=== PATIENT | female | born 1980 | race Caucasian/White ===

== ENCOUNTER → 2016-08-21 | Outpatient (CLI) | payer BC, MEDICAID ==
[~2016-08-21] MED LIST: /AUGM875TA OR; /WARF5TA OR; /WARF5TA PO; ACET500C PO; ACET65TA PO; CALCTAB68 PO; CIPR500T4 PO; CLEO300C PO; COLA100C2 OR; COLA50CA3 PO; DRIS1CAP PO; ENOX40SY SC; FERR325T OR; FLON0.05; IMMODIUM PO; ISOVUE-370 76% 100ML VIAL (Q9967) As Ordered ONE; LEVO112T3 OR; LEVO125T PO; LEVO150T OR; LEVOXYL PO; MACR50CA OR; META0.52 PO; NASAL SPRAY; NYST100024 TOP; PEPCID PO; PERC5TAB8 OR; PERC7.5T8 PO; SALI0.653; TYLE500T53 OR; VICO5TAB OR; VITA500T OR; VITAMIN D PO; WARF1TAB OR; WARF5TAB66 PO; WARF7.5T17 PO
--- NOTE | 2016-08-21 18:21 | REP ---
CT study of the abdomen without and with IV contrast: Without oral contrast: History: Abdominal pain. Comparison study: 06/04/2016. CT contrast dose: 100 mL of Isovue 370 is administered intravenously. Findings: Digital admissions officer radiograph is noncontributory. The lung bases show some chronically increased markings in the left lower lobe. Interstitial compartments unchanged from comparison study. No pleural effusion is seen. The liver and the spleen are normal in size homogeneous in texture. No gallbladder abnormality is seen. Pancreas is unremarkable. No adrenal lesion is seen. 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 Prominent venous collaterals are seen in the anterior abdominal wall as well as an enlarged left gonadal vein draining into the left renal vein which reconstitutes the inferior vena cava above the kidneys and in the liver. The azygos and lorene azygos vein are somewhat prominent as well as collaterals. This is all unchanged. Normal caliber aorta is seen. There is intrarenal hydronephrosis affecting the right kidney without ureteral dilation. Question mild ureteropelvic junction obstruction. This is essentially unchanged from the 06/04/2016 prior study. No renal calculus or mass is mass is seen. No uterine or urinary bladder abnormality is observed. There is a left lower quadrant colostomy. Left sigmoid colon resection with a rectal mucous fistula seen. There is a ventral hernia transmitting unobstructed loops of small intestine to the right of midline in the periumbilical region. A second ventral hernia transmits another loop of unobstructed small bowel in the suprapubic region. There is extensive fibrosis along a suprapubic midline incision again noted unchanged. No evidence of intraabdominal mass or abscess. No free fluid is noted. No uterine or ovarian abnormality is seen. Impression: 1. Status post left colonic resection with rectal oversewing and left lower quadrant colostomy. 2. Ventral hernias times two in the lower abdomen without evidence of obstruction unchanged. 3. Extensive postoperative fibrosis in the lower suprapubic anterior abdominal wall. 4. 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 5. Question mild UPJ obstruction right kidney with hydronephrosis unchanged from the prior study of 06/04/2016. 6. No acute intraabdominal abnormality seen. Signed by John Velazquez MD 08/22/2016 12:24 P
== END ==
LOC: M RAD 15:22
PROVIDERS: ATTEND Internal Medicine Gastroenterology
DX: Z93.3 Colostomy status (principal); K43.9 Ventral hernia without obstruction or gangrene; R93.5 Abnormal findings on diagnostic imaging of other abdominal regions, including retroperitoneum
CPT/HCPCS: 74178; Q9967

== ENCOUNTER → 2016-12-06 | Outpatient (REF) | payer BC, MEDICAID ==
[~2016-12-06] MED LIST changes: -ISOVUE-370 76% 100ML VIAL (Q9967) As Ordered ONE
[2016-12-06 14:41] LABS: FREE T4 1.28 NG/DL (0.76-1.46)
== END ==
LOC: M SFHCPLAZ 11:23
PROVIDERS: ATTEND Nurse Practitioner Family
DX: E55.9 Vitamin D deficiency, unspecified (principal); E03.9 Hypothyroidism, unspecified

== ENCOUNTER → 2017-11-08 | Outpatient (REF) | payer BC, MEDICAID ==
[2017-11-08 17:53] LABS: INR 1.58; PROTHROMBIN TIME 19.3 SECONDS (12.4-14.5)
[2017-11-08 17:59] LABS: ALBUMIN 3.3 GM/DL (3.2-5.2); ALBUMIN/GLOBULIN RATIO 0.65 (1.00-1.93); ALKALINE PHOSPHATASE 94 U/L (45-117); ALT/SGPT 25 U/L (12-78); ANION GAP 9 MEQ/L (8-16); AST/SGOT 17 U/L (7-37); BILIRUBIN,TOTAL 0.4 MG/DL (0.2-1.0); BLOOD UREA NITROGEN 26 MG/DL (7-18); CALCIUM LEVEL 8.7 MG/DL (8.5-10.1); CARBON DIOXIDE LEVEL 26 MEQ/L (21-32); CHLORIDE LEVEL 107 MEQ/L (98-107); CREATININE FOR GFR 1.15 MG/DL (0.55-1.30); GLOMERULAR FILTRATION RATE 56.8 (>60); GLUCOSE, FASTING 69 MG/DL (70-100); SODIUM LEVEL 142 MEQ/L (136-145); TOTAL PROTEIN 8.4 GM/DL (6.4-8.2)
[2017-11-08 18:14] LABS: TOTAL 25(OH) VITAMIN D 51.9 NG/ML (30.0-100.0)
== END ==
LOC: M SFHCPLAZ 12:49
DX: Z51.81 Encounter for therapeutic drug level monitoring (principal); Z79.899 Other long term (current) drug therapy; R10.13 Epigastric pain; E03.9 Hypothyroidism, unspecified; E55.9 Vitamin D deficiency, unspecified
CPT/HCPCS: 84443

== ENCOUNTER → 2018-01-17 | Outpatient (REF) | payer BC, MEDICAID ==
[2018-01-17 12:18] LABS: FREE T4 1.21 NG/DL (0.76-1.46)
== END ==
LOC: M SFHCPLAZ 09:07
DX: E03.9 Hypothyroidism, unspecified (principal)
CPT/HCPCS: 84443

== ENCOUNTER → 2018-05-21 | Outpatient (REF) | payer BC, MEDICAID ==
[2018-05-21 15:41] LABS: HEMATOCRIT 41.1 % (36.0-47.0); HEMOGLOBIN 12.8 g/dl (12.0-15.5); MEAN CORPUSCULAR HEMOGLOBIN 29.2 pg (27.0-33.0); MEAN CORPUSCULAR HGB CONC 31.1 g/dl (32.0-36.5); MEAN CORPUSCULAR VOLUME 93.6 fl (80.0-96.0); PLATELET COUNT, AUTOMATED 242 10^3/uL (150-450); RED BLOOD COUNT 4.39 10^6/uL (4.00-5.40); RED CELL DISTRIBUTION WIDTH 17.2 % (11.5-14.5); WHITE BLOOD COUNT 6.4 10^3/uL (4.0-10.0)
[2018-05-21 15:50] LABS: INR 2.35; PROTHROMBIN TIME 26.2 SECONDS (12.1-14.4)
[2018-05-21 16:05] LABS: ALBUMIN 2.8 GM/DL (3.2-5.2); ALBUMIN/GLOBULIN RATIO 0.53 (1.00-1.93); ALKALINE PHOSPHATASE 77 U/L (45-117); ALT/SGPT 30 U/L (12-78); ANION GAP 7 MEQ/L (8-16); AST/SGOT 21 U/L (7-37); BILIRUBIN,TOTAL 0.5 MG/DL (0.2-1.0); BLOOD UREA NITROGEN 16 MG/DL (7-18); CALCIUM LEVEL 8.7 MG/DL (8.5-10.1); CARBON DIOXIDE LEVEL 25 MEQ/L (21-32); CHLORIDE LEVEL 105 MEQ/L (98-107); GLOMERULAR FILTRATION RATE 59.5 (>60); GLUCOSE, FASTING 69 MG/DL (70-100); POTASSIUM SERUM 4.2 MEQ/L (3.5-5.1); SODIUM LEVEL 137 MEQ/L (136-145); THYROID STIMULATING HORMONE 0.482 uIU/ML (0.358-3.740); TOTAL PROTEIN 8.1 GM/DL (6.4-8.2)
[2018-05-21 16:06] LABS: TOTAL 25(OH) VITAMIN D 53.7 NG/ML (30.0-100.0)
== END ==
LOC: M SFHCPLAZ 13:28
DX: N18.3 Chronic kidney disease, stage 3 (moderate) (principal); Z86.718 Personal history of other venous thrombosis and embolism; E03.9 Hypothyroidism, unspecified; E55.9 Vitamin D deficiency, unspecified
CPT/HCPCS: 84443

== ENCOUNTER → 2018-07-22 | Outpatient (REF) | payer BC, MEDICAID ==
[2018-07-22 20:59] LABS: INR 2.16; PROTHROMBIN TIME 24.5 SECONDS (12.1-14.4)
[2018-07-22 21:04] LABS: AMORPHOUS SEDIMENT SMALL (NEGATIVE); APPEARANCE, URINE HAZY (CLEAR); BACTERIA, URINE AUTO NEGATIVE (NEGATIVE); BILIRUBIN, URINE AUTO NEGATIVE (NEGATIVE); BLOOD, URINE BLOOD 1+ (NEGATIVE); COLOR, URINE YELLOW (YELLOW); GLUCOSE, URINE (UA) AUTO NEGATIVE (NEGATIVE); KETONE, URINE AUTO NEGATIVE (NEGATIVE); LEUKOCYTE ESTERASE, URINE AUTO 3+ (NEGATIVE); MUCUS, URINE SMALL (NEGATIVE); NITRITE, URINE AUTO NEGATIVE (NEGATIVE); PROTEIN, URINE AUTO NEGATIVE (NEGATIVE); RBC, URINE AUTO 3 /HPF (0-3); SPECIFIC GRAVITY URINE AUTO 1.019 (1.002-1.035); SQUAMOUS EPITHELIAL CELL UR AU 5 /HPF (0-6); UROBILINOGEN, URINE AUTO 0.2 mg/dL (0.0-2.0); WBC, URINE AUTO 1 /HPF (0-3)
== END ==
LOC: M SFHCPLAZ 15:20
PROVIDERS: ATTEND Nurse Practitioner Family
DX: Z51.81 Encounter for therapeutic drug level monitoring (principal); N18.3 Chronic kidney disease, stage 3 (moderate); R39.89 Other symptoms and signs involving the genitourinary system

== ENCOUNTER → 2018-11-18 | Outpatient (REF) | payer BC, MEDICAID ==
[~2018-11-18] MED LIST changes: -/WARF5TA OR; -/WARF5TA PO; +COUM1TAB17 OR; +COUM1TAB17 PO; -ENOX40SY SC; +LOVE1INJ SC
[2018-11-18 15:50] LABS: FREE T4 1.36 NG/DL (0.76-1.46); THYROID STIMULATING HORMONE 1.2 uIU/ML (0.358-3.740); TOTAL 25(OH) VITAMIN D 45.2 NG/ML (30.0-100.0)
== END ==
LOC: M SFHCPLAZ 11:59
PROVIDERS: ATTEND Nurse Practitioner Family
DX: E03.9 Hypothyroidism, unspecified (principal); E55.9 Vitamin D deficiency, unspecified

== ENCOUNTER → 2018-11-25 | Outpatient (CLI) | payer BC, MEDICAID ==
--- NOTE | 2018-11-25 12:24 | REP ---
Chest two views HISTORY: Dyspnea Comparison: 11/13/2012 The lungs are clear. The heart is normal in size. The pulmonary vasculature is normal in appearance. The bony structure is intact. IMPRESSION: No acute disease. Electronically Signed by Alex Barnett MD 11/25/2018 12:16 P
== END ==
LOC: M RAD 11:50
PROVIDERS: ATTEND Nurse Practitioner Family
DX: R06.09 Other forms of dyspnea (principal)

== ENCOUNTER 2019-01-06 14:57 | Emergency (ER) | payer BC, MEDICAID ==
[~2019-01-06] VITALS: Ht 149.9 cm; Wt 159.1 kg
[2019-01-06] MEDS ORDERED: ONDANSETRON 4 MG ORAL DISINTEGRATING TAB (Q0162 PER 1MG) PO ONE (15:45)
[2019-01-06] MEDS ORDERED: MORPHINE 4 MG/ML 1ML VIAL/SYRINGE (J2270) SC ONE (15:45)
[2019-01-06] MEDS ORDERED: RANI15TA PO (15:56)
[2019-01-06] MEDS ORDERED: LEVO112T2 PO (15:56)
[2019-01-06] MEDS ORDERED: LEVO2TA PO ×2 (16:12→21:28)
[2019-01-06] MEDS ORDERED: WARF-18 PO (16:13)
--- NOTE | 2019-01-06 17:04 | REP ---
ABDOMINAL SERIES: Supine and erect views of the abdomen are performed. No free air is seen. Air and fecal material seen in the colon. There are mildly dilated small bowel loops in the left lower quadrant. This could represent a mild small bowel ileus versus early or partial small bowel obstruction. There are overlying metallic clips. An accompanying view of the chest demonstrates no acute infiltrate. Cardiac silhouette is mildly prominent. Mediastinal silhouette is unchanged. IMPRESSION: No free air. Mildly dilated small bowel loops in the left lower quadrant may represent a mild ileus versus early/partial small bowel obstruction. Electronically Signed by Wilfredo Simon MD 01/07/2019 10:09 A
[2019-01-06] MEDS: MORPHINE 4 MG/ML 1ML VIAL/SYRINGE (J2270) IV PRN ×2 (17:18→18:44)
[2019-01-06 17:22] LABS: BASO # 0.1 10^3/uL (0.0-0.2); BASO % 0.6 % (0.0-1.0); EOS % 0.3 % (0.0-3.0); HEMATOCRIT 42.2 % (36.0-47.0); HEMOGLOBIN 13.3 g/dl (12.0-15.5); LYMPH # 1.8 10^3/uL (1.5-4.5); LYMPH % 15.2 % (24.0-44.0); MEAN CORPUSCULAR HEMOGLOBIN 29.3 pg (27.0-33.0); MEAN CORPUSCULAR HGB CONC 31.5 g/dl (32.0-36.5); MONO # 0.9 10^3/uL (0.0-0.8); MONO % 7.6 % (0.0-5.0); NEUTROPHILS # 8.9 10^3/uL (1.8-7.7); NEUTROPHILS % 75.8 % (36.0-66.0); PLATELET COUNT, AUTOMATED 276 10^3/uL (150-450); RED BLOOD COUNT 4.54 10^6/uL (4.00-5.40); WHITE BLOOD COUNT 11.8 10^3/uL (4.0-10.0)
[2019-01-06] MEDS: GASTROGRAFIN SOLUTION 30ML PO SCH ×2 (17:26→17:57)
[2019-01-06 17:47] LABS: BLOOD UREA NITROGEN 9 MG/DL (7-18); CALCIUM LEVEL 8.6 MG/DL (8.5-10.1); CARBON DIOXIDE LEVEL 27 MEQ/L (21-32); CHLORIDE LEVEL 104 MEQ/L (98-107); GLOMERULAR FILTRATION RATE > 60.0 (>60); GLUCOSE, FASTING 87 MG/DL (70-100); POTASSIUM SERUM 4.5 MEQ/L (3.5-5.1); SODIUM LEVEL 139 MEQ/L (136-145)
[2019-01-06] MEDS ORDERED: ISOVUE-370 76% 100ML VIAL (Q9967) As Ordered ONE (19:01)
--- NOTE | 2019-01-06 20:18 | REPVR ---
EXAM: CT Abdomen and Pelvis With Contrast EXAM DATE/TIME: 01/06/2019 7:27 PM CLINICAL HISTORY: 38 years old, female; Abdominal pain; Additional info: R/O sbo TECHNIQUE: Imaging protocol: Axial computed tomography images of the abdomen and pelvis with intravenous contrast. Coronal and sagittal reformatted images were created and reviewed. Radiation optimization: All CT scans at this facility use at least one of these dose optimization techniques: automated exposure control; mA and/or kV adjustment per patient size (includes targeted exams where dose is matched to clinical indication); or iterative reconstruction. Contrast material: ISO 370; Contrast volume: 100 ml; Contrast route: IV; COMPARISON: CT ABD PELVIS WITH CONTRAST 06/04/2016 12:15 AM FINDINGS: Lungs: There is bibasilar compressive atelectasis. Pleural space: Small right pleural effusion. Liver: There is a diffuse decrease in hepatic parenchymal density, consistent with fatty infiltration. 1.9 cm soft tissue density in the gastrohepatic ligament likely represents a prominent caudate process of the caudate lobe of the liver and less likely a gastrohepatic ligament lymph node. Gallbladder and bile ducts: Normal. No calcified stones. No ductal dilation. Pancreas: Normal. No ductal dilation. Spleen: Normal. No splenomegaly. Adrenals: Normal. No mass. Kidneys and ureters: Multiple peripelvic cysts in the right kidney versus UPJ obstruction. Finding is stable in comparison to prior studies. Stomach and bowel: Numerous superficial varicosities in the anterior and anterolateral bowel wall secondary to a thrombosed distal inferior vena cava. Spigelian hernia left lower quadrant contains a dilated loop of edematous small bowel consistent with incarceration. There is no dilatation of the remaining small bowel loops to suggest obstruction. Appendix: No evidence of appendicitis. Intraperitoneal space: Inflammatory changes in the mesentery dorsal quadrant adjacent to the spigelian hernia. No free air. No significant fluid collection. Vasculature: Normal. No abdominal aortic aneurysm. Lymph nodes: Normal. No enlarged lymph nodes. Bladder: Unremarkable as visualized. Reproductive: Unremarkable as visualized. Bones/joints: This is moderate central spinal stenosis L4-5. Soft tissues: Large mid ventral anterior abdominal wall hernia contains loops of small bowel without evidence of incarceration or obstruction. Findings stable in comparison to the prior study. Prominent scar mid ventral anterior abdominal wall. Soft tissue edema and skin thickening anterior abdominal wall predominately over the large pannus in the lower abdomen. IMPRESSION: 1. Numerous superficial varicosities in the anterior and anterolateral bowel wall secondary to a thrombosed distal inferior vena cava. 2. There is a diffuse decrease in hepatic parenchymal density, consistent with fatty infiltration. 3. Large mid ventral anterior abdominal wall hernia contains loops of small bowel without evidence of incarceration or obstruction. Findings stable in comparison to the prior study. 4. Spigelian hernia left lower quadrant contains a dilated loop of edematous small bowel consistent with incarceration. There is no dilatation of the remaining small bowel loops to suggest obstruction. COMMENT: Consistent with the [employer]'s Incidental Findings Committee Report (J Am Renny Radiol 2010): Unless the patient's specific circumstances suggest otherwise, any liver lesion 0.5 cm or less, any cystic kidney lesion less than 1.0 cm, and/or any adrenal lesion 1.0 cm or less not otherwise characterized in this report as possessing suspicious or indeterminate imaging features is/are highly likely to be benign and do not require follow-up imaging or biopsy. Electronically signed by: Claus Maria On 01/06/2019 20:17:32 PM
[2019-01-06] MEDS ORDERED: RANI1TAB6 PO (21:28)
[2019-01-06] MEDS ORDERED: SYNT25TA PO (21:28)
[2019-01-06 21:32] LABS: ALBUMIN 2.6 GM/DL (3.2-5.2); ALT/SGPT 25 U/L (12-78); BILIRUBIN,DIRECT 0.2 MG/DL (0.0-0.2); BILIRUBIN,TOTAL 0.8 MG/DL (0.2-1.0); LIPASE 62 U/L (73-393)
[2019-01-06] MEDS ORDERED: WARF-23 PO ×2 (22:03)
[2019-01-06] MEDS ORDERED: NYST1POW9 TOP (22:03)
[2019-01-06] MEDS ORDERED: PAMPRIN PO (22:03)
[2019-01-06] MEDS ORDERED: SM N0.65 (22:03)
[2019-01-06] MEDS ORDERED: FLON1SPR (22:03)
[2019-01-06 22:34] LABS: INR 2.9; PROTHROMBIN TIME 30.2 SECONDS (11.8-14.0)
[2019-01-06 22:35] LABS: PARTIAL THROMBOPLASTIN TIME 60.9 SECONDS (25.0-38.4)
[2019-01-06 23:38] VITALS: BP 105/80
--- NOTE | 2019-01-08 12:56 | ED PDOC ---
Post-Departure Follow-Up dr painter and porfirio sotelo faxed formal report of ct abd/p for fu Long Antoine MD Jan 08, 2019 12:56
== END 2019-01-06 23:42 | disposition home or self-care (01) ==
LOC: M ED 14:57
DX: R10.9 Unspecified abdominal pain (principal); Q43.1 Hirschsprung's disease; Q90.9 Down syndrome, unspecified; I73.00 Raynaud's syndrome without gangrene; Z86.718 Personal history of other venous thrombosis and embolism; E07.9 Disorder of thyroid, unspecified; G47.33 Obstructive sleep apnea (adult) (pediatric); Z88.0 Allergy status to penicillin; Z93.3 Colostomy status; Z79.899 Other long term (current) drug therapy; Z79.01 Long term (current) use of anticoagulants
CPT/HCPCS: 74021; 74177; 80048; 80076; 83690; 85025; 85610; 85730; 96372; 96374; 96376; 99284; J2270; Q0162; Q9963; Q9967

== ENCOUNTER 2019-01-19 19:11 | Inpatient (IN) | payer BC, MEDICAID ==
[~2019-01-19] VITALS: Ht 149.9 cm; Wt 152.4 kg
[~2019-01-19 19:11] MED LIST changes: +FLON1SPR; +LEVO112T2 PO; +LEVO2TA PO; +NYST1POW9 TOP; +PAMPRIN PO; +RANI15TA PO; +RANI1TAB6 PO; +SM N0.65; +SYNT25TA PO; +WARF-18 PO; +WARF-23 PO
[2019-01-19] MEDS ORDERED: LORazepam 2 MG/ML VIAL (J2060) IV STA (21:01)
[2019-01-19] MEDS ORDERED: NS 500 ML IV ONE (21:15)
[2019-01-19] MEDS: GASTROGRAFIN SOLUTION 30ML PO SCH ×2 (21:24→21:25)
[2019-01-19 22:37] LABS: BASO # 0.1 10^3/uL (0.0-0.2); BASO % 0.5 % (0.0-1.0); EOS # 0.2 10^3/uL (0.0-0.50); HEMATOCRIT 37.5 % (36.0-47.0); HEMOGLOBIN 11.6 g/dl (12.0-15.5); LYMPH # 1.9 10^3/uL (1.5-4.5); LYMPH % 12.8 % (24.0-44.0); MEAN CORPUSCULAR HEMOGLOBIN 29.4 pg (27.0-33.0); MEAN CORPUSCULAR HGB CONC 30.9 g/dl (32.0-36.5); MEAN CORPUSCULAR VOLUME 95.2 fl (80.0-96.0); MONO # 0.8 10^3/uL (0.0-0.8); MONO % 5.4 % (0.0-5.0); NEUTROPHILS # 11.4 10^3/uL (1.8-7.7); NEUTROPHILS % 79.3 % (36.0-66.0); PLATELET COUNT, AUTOMATED 461 10^3/uL (150-450); RED BLOOD COUNT 3.94 10^6/uL (4.00-5.40); WHITE BLOOD COUNT 14.4 10^3/uL (4.0-10.0)
[2019-01-19 22:48] LABS: PROTHROMBIN TIME 86.9 SECONDS (11.8-14.0)
[2019-01-19 22:53] LABS: INR 10.85; PARTIAL THROMBOPLASTIN TIME 132.3 SECONDS (25.0-38.4)
[2019-01-19 23:10] LABS: ALBUMIN 1.9 GM/DL (3.2-5.2); BILIRUBIN,DIRECT 0.2 MG/DL (0.0-0.2); BILIRUBIN,TOTAL 0.4 MG/DL (0.2-1.0); CALCIUM LEVEL 8.1 MG/DL (8.5-10.1); CREATININE FOR GFR 1.2 MG/DL (0.55-1.30); GLOMERULAR FILTRATION RATE 53.8 (>60); POTASSIUM SERUM 3.1 MEQ/L (3.5-5.1); TOTAL PROTEIN 7.7 GM/DL (6.4-8.2)
[2019-01-19] MEDS ORDERED: PHYTONADIONE INJection 5 MG in NS 50 ML IV ONE (23:30)
--- NOTE | 2019-01-20 00:48 | REPVR ---
EXAM: CT Abdomen and Pelvis Without Contrast EXAM DATE/TIME: 01/19/2019 9:01 PM CLINICAL HISTORY: 38 years old, female; Abdominal pain; Generalized; Additional info: Pain/bleeding TECHNIQUE: Imaging protocol: Axial computed tomography images of the abdomen and pelvis without contrast. Coronal and sagittal reformatted images were created and reviewed. Radiation optimization: All CT scans at this facility use at least one of these dose optimization techniques: automated exposure control; mA and/or kV adjustment per patient size (includes targeted exams where dose is matched to clinical indication); or iterative reconstruction. COMPARISON: CT ABD/PEL W/IV ORAL CONTRAS 01/06/2019 7:14 PM FINDINGS: Lungs: Minimal left lower lobe infiltrate or atelectasis. Liver: The liver attenuation is 15 Hounsfield units and the spleen is 55 Hounsfield units. Gallbladder and bile ducts: Normal. No calcified stones. No ductal dilation. Pancreas: Normal. No ductal dilation. Spleen: Normal. No splenomegaly. Adrenals: Normal. No mass. Kidneys and ureters: Right perinephric induration with suggestion of hydronephrosis to the UPJ which is increased since the prior study and may reflect overlying infection. Stomach and bowel: Colostomy at the level of the descending colon with slight wall thickening of the distal colon preceding the colostomy site which may reflect colitis. There is incomplete visualization of a ventral wall hernia which contains nondilated contrast filled small bowel. Appendix: There are no changes of appendicitis. A normal appendix is not seen. Intraperitoneal space: Normal. No free air. No significant fluid collection. Vasculature: The IVC is essentially nonexistent. Lymph nodes: Normal. No enlarged lymph nodes. Bladder: Unremarkable as visualized. Reproductive: Unremarkable as visualized. Bones/joints: No acute fracture. No dislocation. Soft tissues: Large azygos vein at the caudal aspect of the chest with large venous varicosities or collaterals in the anterior abdominal wall. Prominent induration of the left lateral abdominal wall. Protrusion of ovoid soft tissue into the left lateral abdominal wall which is similar to the prior study it may reflect a segment of colon. There is some additional adjacent gas within indurated fat and may reflect a segment of bowel extending to the surface from a possible pouch. The appearance of this configuration is similar to the prior study. IMPRESSION: 1. Essentially nonexistent IVC. There are prominent venous collaterals/varicosities in the anterior abdominal wall and there are large paraspinous collaterals forming a large azygos vein. 2. Minimal left lower lobe infiltrate or atelectasis which is similar to 01/06/2019. 3. Right perinephric induration and hydronephrosis to the UPJ which is increased since the prior study and may reflect interval infection or pyonephrosis. 4. Fatty infiltration of the liver. 5. Wall thickening of the descending colon suggesting nonspecific segmental colitis which is increased since the prior study. 6. Defect in the left lateral abdominal wall which appears to reflect a colostomy. There is a large ovoid protrusion of soft tissue density through the defect which may reflect a bowel loop or pouch but has a similar configuration to the prior study. There is induration of the surrounding subcutaneous left lateral abdominal wall which is similar and may reflect cellulitis. Hemorrhagic infiltration is not excluded but the finding is similar to the prior study. 7. Incomplete visualization of a ventral wall hernia containing small bowel segments but may be similar to the prior study. Electronically signed by: Feliz Eller On 01/20/2019 00:47:18 AM
[2019-01-20] MEDS ORDERED: NS 1,000 ML IV ONE (01:00)
[2019-01-20] MEDS ORDERED: metroNIDAZOLE 500 MG in APPROPRIATE DILUENT 1 EA IV ONE (01:00)
[2019-01-20] MEDS ORDERED: CIPROFLOXACIN 400 MG in APPROPRIATE DILUENT 1 EA IV ONE (01:00)
[2019-01-20] MEDS ORDERED: VITA1CAP25 PO (01:24)
[2019-01-20] MEDS ORDERED: METAL LOCK LOOP XX ONE (02:26)
[2019-01-20] MEDS ORDERED: NEOSPORIN OINT 0.9 GM PKT (FLOOR STOCK) As Ordered ONE (02:28)
[2019-01-20] MEDS ORDERED: LORazepam 2 MG/ML VIAL (J2060) IV STA (03:02)
--- NOTE | 2019-01-20 03:57 | HPEPDOC ---
General Date of Admission 01/20/19 Date of Service: Jan 20, 2019 Chief Complaint The patient is a 38-year-old female admitted with a reason for visit of Abdominal Pain. Source: Family, RN/MD, Old records Severity: Severe History of Present Illness 38 year old female with Down's syndrome and cognitive impairment, MORBID OBESITY, DORIS NOT ON CPAP, h/o Hirschsprung disease s/p multiple abdominal surgeries total of 32 surgeries for different problems currently with a colostomy with failed reversal came to the ED with complaints of abdominal pain for 2 weeks and bleeding through the ostomy for 2 days. She has been having crampy abdominal pain all over the abdomen could not quantify the intensity for 2 weeks with loss of appetite and taking only liquids associated with constipation. SHe started having bloody stools 2 days ago which lasted for 1 day then stopped. Yesterday morning she had a almost normal bowel movement but then in the afternoon she again started bleeding profusely through her colostomy with clots and bright red blood so was brought to the ED. In the ED she was found to have an INR of 10.9 and was given vitamin k 1 dose. The bleeding stopped spontaneously. There was no significant change in her HH from baseline. While in the ED she started having diarrhea brownish in color profuse, watery stool sample was sent for C diff. CT abdomen pelvis showed possible colitis in the descending colon and a right hydronephrosis which seems to be worse than before. CT scan has multiple other finding all of which are chronic. There was no features of bowel obstruction. SHe is being admitted for Colitis and warfarin induced coagulopathy. He has not been on any antibiotics recently and her dosage of coumadin has not been changed. Home Medications Scheduled Cholecalciferol (Vitamin D3) (Vitamin D3) 50,000 Unit Capsule, 50,000 UNIT PO Q2WK, (Reported) EVERY OTHER SATURDAY Levothyroxine Sodium (Synthroid) 25 Mcg Tablet, 25 MCG PO DAILY, (Reported) TAKES WITH 200MCG FOR 225MCG TOTAL Levothyroxine Sodium (Synthroid) 200 Mcg Tablet, 200 MCG PO DAILY, (Reported) TAKES WITH 25 MCG FOR 225MCG TOTAL Ranitidine HCl (Ranitidine HCl) 150 Mg Tablet, 1 TAB PO QHS, (Reported) Warfarin Sodium (Warfarin Sodium) 5 Mg Tablet, 5 MG PO 6XWK, (Reported) EVERY NIGHT BUT SATURDAY NIGHT Warfarin Sodium (Warfarin Sodium) 5 Mg Tablet, 2.5 MG PO 1XWK, (Reported) SATURDAY NIGHTS Scheduled PRN Fluticasone Propionate (Flonase Allergy Relief) 9.9 Ml [place].susp, 1 SPRAY NA DAILY PRN for NASAL CONGESTION, (Reported) Nystatin (Nystatin Powder) 15 Gm Powder, 1 DOSE TOP TID PRN for REDNESS/IRRITATION, (Reported) USES UNDER BREASTS AND STOMACH FOLDS Sodium Chloride (Saline Nasal [place]) 44 Ml [place], 1 SPRAY NA QID PRN for NASAL DRYNESS, (Reported) [Pamprin] , 2 TAB PO Q6H PRN for PAIN, (Reported) Allergies Coded Allergies: amoxicillin (Verified Adverse Reaction, Mild, DIARRHEA, 01/06/19) clavulanic acid (Verified Adverse Reaction, Mild, DIARRHEA, 01/06/19) Past Medical History Medical History DOWN'S SYNDROME HIRSCHSPRUNG DISEASE RAYNAUD'S SYNDROME DVT - L LEG 1997, R LEG 03/2010, R ARM 03/2011 HYPOTHYROID 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 COBB 06/22 T & A PARTIAL HYSTERECTOMY WITH DRAINAGE OF TUBO-OVARIAN ABCESS- DR RAUSCH 08/02/10 VENTRAL/INCISIONAL HERNIA REPAIR WITH MESH/ LYSIS OF ADHESIONS TONSILLECTOMY AND ADENOIDECTOMY Family History FATHER: ALIVE, NO KNOWN MEDICAL PROBLEMS MOTHER: ALIVE, HTN, SLEEP APNEA PATERNAL GRAND FATHER: , ALCOHOL ABUSE PATERNAL GRAND MOTHER: ALIVE, HTN MATERNAL GRAND FATHER: ALIVE, HTN, CORONARY ARTERY DISEASE - CABG MATERNAL GRAND MOTHER: ALIVE, DIABETES 1 BROTHER(S) , 1 SISTER(S) - HEALTHY. Social History * Smoker: Denies Alcohol: Denies Drugs: denies A-FIB/CHADSVASC A-FIB History Current/History of A-Fib/PAF?: No Current PO Anticoag Therapy: Yes Review of Systems Constitutional: Denies: Chills, Fever, Night Sweats Eyes: Denies: Pain, Vision change ENT: Denies: Head Aches, Ear Pain, Dysphagia Skin: Denies: Rash, Lesions, Breakdown Pulmonary: Denies: Dyspnea, Cough Cardiovascular: Denies: Chest Pain, Palpitations, Orthopnea, Paroxysmal Noc. Dyspnea, Lt Headedness Gastrointestinal: Reports: Abdominal Pain, Diarrhea, Constipation, Melena, Hematochezia Genitourinary: Denies: Dysuria, Frequency, Incontinence, Retention Hematologic: Denies: Bruising, Bleeding Excessively Musculoskeletal: Denies: Neck Pain, Back Pain, Joint Pain, Muscle Pain, Spasms Physical Examination General Exam: Positive: Alert, Cooperative, Moderate Distress ENT Exam: Positive: Atraumatic, Pharynx Normal, Tongue Midline, Nares Patent, Ext Auditory Canal Nml; Negative: Mucous membr. moist/pink, Pharyngeal Edema, Pinna Normal Neck Exam: Positive: Supple; Negative: JVD, thyromegaly Chest Exam: Positive: Clear to auscultation, Normal air movement Heart Exam: Positive: Rate Normal, Regular Rhythm, Normal S1, Normal S2, Murmurs (systolic murmur present at the base); Negative: Rubs Telemetry: Positive: No significant arrhythmia Abdomen Exam: Positive: BS Hyperactive, Soft, Tenderness (in all the quadrant with hernias and colostomy but no guarding or rigidity), Other (morbidly obese) Extremity Exam: Negative: Clubbing, Cyanosis, Edema Skin Exam: Positive: Nl turgor and temperature; Negative: Breakdown, Lesion Vital Signs Vital Signs Date Time Temp Pulse Resp B/P (MAP) Pulse Ox O2 Delivery O2 Flow Rate FiO2 01/20/19 01:13 149/80 (103) 01/20/19 01:11 93 93 01/19/19 19:28 98.8 18 Room Air Laboratory Data Labs 24H Laboratory Tests 2 01/19/19 22:29: Lactic Acid Level 2.1*H 01/19/19 22:30: Immature Granulocyte % (Auto) 1.0, White Blood Count 14.4H, Red Blood Count 3.94L, Hemoglobin 11.6L, Hematocrit 37.5, Mean Corpuscular Volume 95.2, Mean Corpuscular Hemoglobin 29.4, Mean Corpuscular Hemoglobin Concent 30.9L, Red Cell Distribution Width 17.8H, Platelet Count 461H, Neutrophils (%) (Auto) 79.3H, Lymphocytes (%) (Auto) 12.8L, Monocytes (%) (Auto) 5.4H, Eosinophils (%) (Auto) 1.0, Basophils (%) (Auto) 0.5, Neutrophils # (Auto) 11.4H, Lymphocytes # (Auto) 1.9, Monocytes # (Auto) 0.8, Eosinophils # (Auto) 0.2, Basophils # (Auto) 0.1, Nucleated Red Blood Cells % (auto) 0.0, Prothrombin Time 86.9H, Prothromb Time International Ratio 10.85*H, Activated Partial Thromboplast Time 132.3*H, Anion Gap 8, Glomerular Filtration Rate 53.8L, Calcium Level 8.1L, Aspartate Amino Transf (AST/SGOT) 23, Alanine Aminotransferase (ALT/SGPT) 13, Alkaline Phosphatase 137H, Total Bilirubin 0.4, Direct Bilirubin 0.2, Total Protein 7.7, Albumin 1.9L, Albumin/Globulin Ratio 0.33L, Lipase 56L CBC/BMP Laboratory Tests 01/19/19 22:30 Red Blood Count 3.94 L, Mean Corpuscular Volume 95.2, Mean Corpuscular Hemoglobin 29.4, Mean Corpuscular Hemoglobin Concent 30.9 L, Red Cell Distribution Width 17.8 H, Neutrophils (%) (Auto) 79.3 H, Lymphocytes (%) (Auto) 12.8 L, Monocytes (%) (Auto) 5.4 H, Eosinophils (%) (Auto) 1.0, Basophils (%) (Auto) 0.5, Neutrophils # (Auto) 11.4 H, Lymphocytes # (Auto) 1.9, Monocytes # (Auto) 0.8, Eosinophils # (Auto) 0.2, Basophils # (Auto) 0.1 Assessment/Plan 38 year old female with Down's syndrome and cognitive impairment, h/o Hirschsprung disease s/p multiple abdominal surgeries for different problems currently with a colostomy with failed reversal came to the ED with complaints of abdominal pain for 2 weeks and bleeding through the ostomy for 2 days. She has been having crampy abdominal pain could not quantify the intensity for 2 weeks with loss of appetite and taking only liquids associated with constipation. SHe startee having bloody stools 2 days ago which lasted for 1 day then stopped. Yesterday morning she had a almost normal bowel movement but then in the afternoon she again started bleeding profusely through her colostomy with clots and bright red blood so was brought to the ED. in the ED she was found to have an INR of 10.9 and was given vitamin k 1 dose. The bleeding stopped spontaneously. There was no significant change in her HH from baseline. While in the ED she started having diarrhea brownish in color profuse, watery stool sample was sent for C diff. CT abdomen pelvis showed possible colitis in the descending colon and a right hydronephrosis which seems to be worse than before. CT scan has multiple other finding all of which are chronic. There was no features of bowel obstruction. She is being admitted for Colitis and warfarin induced coagulopathy. Colitis Wall thickening of the descending colon suggesting nonspecific segmental in CT abdomen will check for c diff will treat with cipro and flagyl for now ivf , clear liquids. in view of her multiple abdominal surgeries consider surgical consult. GIB due to warfarin induced coagulopathy with underlying colitis hh q 6 hours transfuse prn Warfarin induced coagulopathy given vit K will give FFP also recheck int he am. Morbid obesity with DORIS did not tolerate CPAP DORIS protocol DOWN'S SYNDROME with cognitive impairment lives at home with parents. Bilateral DVTs DVT - L LEG 1997, R LEG 03/2010, R ARM 03/2011 occluded IVC as seen in CT abdomen with collaterals. HYPOTHYROID continue synthroid Right Hydronephrosis chronic Right perinephric induration and hydronephrosis to the UPJ which is increased since the prior study and may reflect interval infection or pyonephrosis. renal functions normal Hernia through the colostomy There is a large ovoid protrusion of soft tissue density through the defect which may reflect a bowel loop or pouch but has a similar configuration to the prior study. There is induration of the surrounding subcutaneous left lateral abdominal wall which is similar and may reflect cellulitis. Hemorrhagic infiltration is not excluded but the finding is similar to the prior study. consider surgical evaluation. Ventral Hernia Incomplete visualization of a ventral wall hernia containing small bowel segments but may be similar to the prior study. Plan / VTE VTE Prophylaxis Ordered?: Yes ORLANDO WHITLEY MD Jan 20, 2019 03:03
[2019-01-20 04:34] LABS: BASO # 0.1 10^3/uL (0.0-0.2); BASO % 0.4 % (0.0-1.0); EOS # 0.1 10^3/uL (0.0-0.50); EOS % 0.9 % (0.0-3.0); HEMATOCRIT 34.2 % (36.0-47.0); HEMOGLOBIN 10.6 g/dl (12.0-15.5); LYMPH # 2.1 10^3/uL (1.5-4.5); LYMPH % 14.7 % (24.0-44.0); MEAN CORPUSCULAR HEMOGLOBIN 29.3 pg (27.0-33.0); MEAN CORPUSCULAR VOLUME 94.5 fl (80.0-96.0); MONO % 7.2 % (0.0-5.0); NEUTROPHILS # 10.8 10^3/uL (1.8-7.7); PLATELET COUNT, AUTOMATED 445 10^3/uL (150-450); RED BLOOD COUNT 3.62 10^6/uL (4.00-5.40); WHITE BLOOD COUNT 14.2 10^3/uL (4.0-10.0)
[2019-01-20 04:54] LABS: BLOOD UREA NITROGEN 14 MG/DL (7-18); CALCIUM LEVEL 7.5 MG/DL (8.5-10.1); CARBON DIOXIDE LEVEL 31 MEQ/L (21-32); CHLORIDE LEVEL 100 MEQ/L (98-107); CREATININE FOR GFR 1.09 MG/DL (0.55-1.30); GLOMERULAR FILTRATION RATE > 60.0 (>60); GLUCOSE, FASTING 102 MG/DL (70-100); POTASSIUM SERUM 3.5 MEQ/L (3.5-5.1); SODIUM LEVEL 137 MEQ/L (136-145)
[2019-01-20 06:00] VITALS: BP 123/68
[2019-01-20] MEDS ORDERED: FAMOTIDINE IV BAG 20 MG in APPROPRIATE DILUENT 1 EA IV SCH (06:00)
[2019-01-20] MEDS: FAMOTIDINE IV BAG 20 MG in APPROPRIATE DILUENT 1 EA IV SCH ×2 (06:00→18:12)
[2019-01-20] MEDS: LEVOTHYROXINE 100MCG TABLET (0.1MG) PO SCH (06:10)
[2019-01-20] MEDS: LEVOTHYROXINE 25MCG TABLET (0.025MG) PO SCH (06:22)
[2019-01-20] MEDS: MORPHINE 4 MG/ML 1ML VIAL/SYRINGE (J2270) IV PRN ×3 (06:24→23:44)
[2019-01-20 08:00] VITALS: BP 118/65
[2019-01-20 09:00] LABS: INR 2.02; PROTHROMBIN TIME 22.6 SECONDS (11.8-14.0)
[2019-01-20] MEDS: metroNIDAZOLE 500 MG in APPROPRIATE DILUENT 1 EA IV SCH ×2 (10:18→16:56)
[2019-01-20] MEDS: LORazepam 2 MG/ML VIAL (J2060) IV PRN ×2 (10:18→18:39)
[2019-01-20 10:22] LABS: HEMATOCRIT 32.2 % (36.0-47.0); HEMOGLOBIN 9.9 g/dl (12.0-15.5)
[2019-01-20 10:35] LABS: INR 1.98; PROTHROMBIN TIME 22.3 SECONDS (11.8-14.0)
--- NOTE | 2019-01-20 10:38 | IPN ---
DATE OF SERVICE: 01/20/2019 The patient still complains of left-sided abdominal pain, colostomy showed muslin-colored blood clots and bright red blood yesterday, status post 1 unit fresh frozen plasma (FFP) transfusion. Hemoglobin and hematocrit on admission was 11.6 and currently is 10.6. International normalized ratio (INR) is improved from 10.85 to 2.02 today. Partial thromboplastin time (PTT) is pending. Prothrombin time (PT) currently is 22.6. The patient is afebrile. No chills overnight. Mother says that she has foul-smelling urine. CT abdomen and pelvis 01/19/2019 showed IVC is nonexistent. Colitis and hydronephrosis of the UPJ which is increased since prior study. May reflect overlying infection. Colostomy with slight wall thickening of the distal colon preceding the colostomy site. Induration of the left lateral abdominal wall which may reflect hemorrhagic infiltration not excluded but similar to prior study. She denies any nausea or vomiting. Denies urgency, frequency. Complains of some right-sided flank pain. The patient's mother at the bedside says that she was dizzy and lightheaded at home but improved since she has been here today. No shortness of breath, chest pain or pressure or tightness, lightheadedness, or dizziness. Vital signs: Temperature 97.2, pulse 85, respiratory rate 20, blood pressure 118/65, 90% on room air. Generally, the patient is awake, alert, oriented to person and place. She is answering questions appropriately. HEENT: Poor dentition. Missing teeth and dental caries. Moist mucous membranes. No jugular venous distention (JVD). Lungs are diminished but clear to auscultation. No wheezing, rales, or rhonchi. Heart: S1, S2, sinus rhythm. Abdomen is soft. Left-sided colostomy is noted with some blood-tinged discharge and brown stool. Tender in the left lower quadrant. Multiple scarred, prior scars, surgical scars. Extremities: No clubbing, cyanosis, or any pitting edema. LABORATORY DATA: INR is 2.02. White count 14, hemoglobin 10, hematocrit 34, platelet count 445. Metabolic panel has been reviewed. ASSESSMENT AND PLAN: A 38-year-old with history of Down syndrome, Hirschsprung's, Reynard's, deep venous thrombosis (DVT) in the left leg and right arm on chronic warfarin, hypothyroidism, obstructive sleep apnea, floppy eyelid syndrome, phlebitis, colostomy with 32 abdominal surgeries, reversal was not successful, presents with abdominal pain and international normalized ratio (INR) of 10. Given vitamin K and FFP 1 unit with INR of 2.02, admitted for colitis and Coumadin-induced coagulopathy. CURRENT ISSUES: 1. Colitis. Currently on intravenous (IV) Cipro and flagyl, famotidine every 12 hours, and morphine as needed for pain. General surgery has been consulted for bleeding through the colostomy with gastrointestinal (GI) bleed, Dr. Aldrich. 2. Warfarin-induced coagulopathy. Warfarin has been held. Currently receives and has received vitamin K and FFP with INR of 2.02. General surgery to decide if further evaluation is required or inferior vena cava (IVC) filter to be done due to active GI bleed. 3. Acute blood loss anemia. Hemoglobin and hematocrit still remains stable. Currently asymptomatic. No transfusion requirement for red blood cell. 4. Hypocalcemia. Currently stable with no complaints of muscle weakness or spasms. 5. History of Hirschsprung disease. Prior multiple surgeries in the past. Nonreversible colostomy. 6. History of ventral incisional hernia repair with mesh/adhesions in the past and partial multiple abdominal surgeries, currently with abdominal pain but no signs of bowel obstruction. 7. History of partial hysterectomy with drainage of tubo-ovarian abscess by Dr. Garrett in 2010. No acute issues in the pelvis on the CT abdomen and pelvis. 8. Hypothyroidism. Check thyroid-stimulating hormone (TSH) and resume home dose of Synthroid. 9. Obstructive sleep apnea. Refuses continuous positive airway pressure (CPAP). 10. History of deep venous thrombosis of the lower extremity, right leg, left leg, right arm. Currently with acute blood loss anemia through GI bleed. The patient will need an IVC filter placed.
[2019-01-20 12:00] VITALS: BP 113/59
[2019-01-20] MEDS: CIPROFLOXACIN 400 MG in APPROPRIATE DILUENT 1 EA IV SCH (14:14)
[2019-01-20 15:37] LABS: HEMOGLOBIN 9.8 g/dl (12.0-15.5)
[2019-01-20 16:00] VITALS: BP 134/76
[2019-01-20 19:18] LABS: INR 1.69; PROTHROMBIN TIME 19.6 SECONDS (11.8-14.0)
[2019-01-20 20:00] VITALS: BP 95/48
[2019-01-20 22:34] LABS: HEMATOCRIT 31.8 % (36.0-47.0); HEMOGLOBIN 9.9 g/dl (12.0-15.5)
[2019-01-20 23:59] VITALS: BP 96/50
[2019-01-21] MEDS: metroNIDAZOLE 500 MG in APPROPRIATE DILUENT 1 EA IV SCH ×3 (01:53→16:17)
[2019-01-21] MEDS: CIPROFLOXACIN 400 MG in APPROPRIATE DILUENT 1 EA IV SCH ×2 (01:56→14:51)
[2019-01-21 04:00] VITALS: BP 96/52
[2019-01-21 04:36] LABS: AMORPHOUS SEDIMENT SMALL (NEGATIVE); APPEARANCE, URINE HAZY (CLEAR); BACTERIA, URINE AUTO 1+ (NEGATIVE); BILIRUBIN, URINE AUTO NEGATIVE (NEGATIVE); BLOOD, URINE BLOOD 3+ (NEGATIVE); COLOR, URINE YELLOW (YELLOW); GLUCOSE, URINE (UA) AUTO NEGATIVE (NEGATIVE); KETONE, URINE AUTO NEGATIVE (NEGATIVE); LEUKOCYTE ESTERASE, URINE AUTO 2+ (NEGATIVE); MUCUS, URINE SMALL (NEGATIVE); NITRITE, URINE AUTO NEGATIVE (NEGATIVE); PROTEIN, URINE AUTO NEGATIVE (NEGATIVE); RBC, URINE AUTO 13 /HPF (0-3); SPECIFIC GRAVITY URINE AUTO 1.008 (1.002-1.035); SQUAMOUS EPITHELIAL CELL UR AU 3 /HPF (0-6); UROBILINOGEN, URINE AUTO 0.2 mg/dL (0.0-2.0); WBC, URINE AUTO 14 /HPF (0-3)
[2019-01-21] MEDS: LEVOTHYROXINE 25MCG TABLET (0.025MG) PO SCH (05:52)
[2019-01-21] MEDS: LEVOTHYROXINE 100MCG TABLET (0.1MG) PO SCH (05:52)
[2019-01-21] MEDS: FAMOTIDINE IV BAG 20 MG in APPROPRIATE DILUENT 1 EA IV SCH ×2 (05:52→17:35)
[2019-01-21 06:08] LABS: BASO # 0.1 10^3/uL (0.0-0.2); BASO % 0.4 % (0.0-1.0); EOS # 0.2 10^3/uL (0.0-0.50); EOS % 1.6 % (0.0-3.0); HEMATOCRIT 30.4 % (36.0-47.0); HEMOGLOBIN 9.4 g/dl (12.0-15.5); LYMPH # 1.8 10^3/uL (1.5-4.5); LYMPH % 13.4 % (24.0-44.0); MEAN CORPUSCULAR HEMOGLOBIN 28.4 pg (27.0-33.0); MEAN CORPUSCULAR HGB CONC 30.9 g/dl (32.0-36.5); MEAN CORPUSCULAR VOLUME 91.8 fl (80.0-96.0); MONO % 7.2 % (0.0-5.0); NEUTROPHILS # 10.4 10^3/uL (1.8-7.7); NEUTROPHILS % 76.1 % (36.0-66.0); PLATELET COUNT, AUTOMATED 434 10^3/uL (150-450); RED BLOOD COUNT 3.31 10^6/uL (4.00-5.40); WHITE BLOOD COUNT 13.7 10^3/uL (4.0-10.0)
[2019-01-21 06:21] LABS: INR 1.74; PROTHROMBIN TIME 20.1 SECONDS (11.8-14.0)
[2019-01-21 06:33] LABS: CREATININE FOR GFR 1.13 MG/DL (0.55-1.30); GLOMERULAR FILTRATION RATE 57.7 (>60); POTASSIUM SERUM 2.9 MEQ/L (3.5-5.1)
[2019-01-21 08:00] VITALS: BP 108/59
[2019-01-21] MEDS: NYSTATIN 100,000 UNITS/GM TOPICAL PWD 15 GM TOP SCH ×2 (08:41→20:06)
[2019-01-21] MEDS ORDERED: POTASSIUM CHLORIDE 10 MEQ SR TABLET PO ONE ×2 (09:30→19:15)
[2019-01-21] MEDS: LORazepam 2 MG/ML VIAL (J2060) IV PRN ×2 (10:25→20:06)
[2019-01-21] MEDS: LACTULOSE 20 GM/30 ML SYRUP UD PO SCH (10:59)
[2019-01-21] MEDS: SENOKOT S TAB PO SCH ×2 (10:59→20:05)
--- NOTE | 2019-01-21 11:01 | IPNPDOC ---
Subjective General Date/Time Seen The patient was seen on 01/21/19 at 10:57. Subject Chief Complaint/History The patient is a 38-year-old female admitted with a reason for visit of Colitis, Gib, Warfarin Induced Coagulopathy. Current Medications Current Medications Current Medications Medications (Trade) Dose Ordered Sig/Lety Route PRN Reason Start Time Stop Time Status Last Admin Dose Admin Ciprofloxacin 400 mg/IV Miscellaneous Supplies 200 ml @ 200 mls/hr Q12H IV 01/20/19 14:00 01/21/19 01:56 Diatrizoate Meglum/ Diatrizoate Sod (Gastrografin) 10 ml Q30M PO 01/19/19 21:35 01/19/19 22:06 DC 01/19/19 21:25 Famotidine 20 mg/ IV Miscellaneous Supplies 50 ml @ 100 mls/hr Q12H IV 01/20/19 06:00 01/20/19 06:00 DC Famotidine 20 mg/ IV Miscellaneous Supplies 50 ml @ 100 mls/hr Q12H IV 01/20/19 06:00 01/21/19 05:52 Home Med (Med Rec Complete!) ASDIRECTED XX 01/20/19 01:30 01/20/19 01:30 DC Lactulose (Cephulac) 15 ml Q2D PO 01/21/19 09:00 Levothyroxine Sodium (Synthroid) 25 mcg DAILY@0600 PO 01/20/19 06:00 01/21/19 05:52 Levothyroxine Sodium (Synthroid) 200 mcg DAILY@0600 PO 01/20/19 06:00 01/21/19 05:52 Lorazepam (Ativan) 0.5 mg Q6HP PRN IV AGITATION 01/20/19 04:30 01/21/19 10:25 Lorazepam (Ativan) 0.5 mg STAT STAT IV 01/19/19 21:01 01/19/19 21:03 DC 01/19/19 21:24 Lorazepam (Ativan) 0.5 mg STAT STAT IV 01/20/19 03:02 01/20/19 03:03 DC 01/20/19 03:16 Metronidazole 500 mg/IV Miscellaneous Supplies 100 ml @ 100 mls/hr Q8H IV 01/20/19 09:00 01/21/19 10:26 Morphine Sulfate (Morphine Sulfate Inj) 2 mg Q4HP PRN IV PAIN 01/20/19 04:30 01/20/19 23:44 Nystatin (Mycostatin Powder, Nystop) abdominal folds BID TOP 01/21/19 09:00 01/21/19 08:41 Senna/Docusate Sodium (Senokot S) 1 tab BID PO 01/21/19 09:00 Warfarin Sodium (Coumadin) 5 mg DAILY@17 PO 01/21/19 17:00 Allergies Coded Allergies: amoxicillin (Verified Adverse Reaction, Mild, DIARRHEA, 01/06/19) clavulanic acid (Verified Adverse Reaction, Mild, DIARRHEA, 01/06/19) Objective Physical Examination Examination GENERAL APPEARANCE:[Patient seen, laying in bed, awake, alert, and oriented. Comfortable, in no acute distress]. SKIN: [Warm and moist]. HEENT: [Normocephalic, atraumatic. Butterfield palpebral conjunctiva, anicteric sclerae. Lips and mucosa appear moist]. NECK: [Supple, no thyromegaly. No obvious jugular venous distention]. LUNGS: [Clear to auscultation bilaterally. No wheezing appreciated]. HEART: [No chest wall abnormalities. Regular rate and rhythm with no murmurs appreciated]. ABDOMEN: Abdomen is , soft, . [No hepatosplenomegaly. No umbilical or groin herniations, nondistended. No noticeable rebound or guarding. No grimacing with palpation. No rebound tenderness. No masses appreciated]. EXTREMITIES: [Extremities have no deformities. No edema identified]. Vital Signs Vital Signs Date Time Temp Pulse Resp B/P (MAP) Pulse Ox O2 Delivery O2 Flow Rate FiO2 01/21/19 08:00 98.6 78 20 108/59 (75) 94 01/19/19 19:28 Room Air I&Os I&O- Last 24 Hours up to 6 AM 01/21/19 06:00 Intake Total 1880 ml Output Total 1150 ml Balance 730 ml Laboratory Data Labs 24H Laboratory Tests 2 01/20/19 15:23: Prothrombin Time 19.6H, Prothromb Time International Ratio 1.69 01/21/19 05:52: Prothrombin Time 20.1H, Prothromb Time International Ratio 1.74, Immature Granulocyte % (Auto) 1.3, White Blood Count 13.7H, Red Blood Count 3.31L, Hemoglobin 9.4L, Hematocrit 30.4L, Mean Corpuscular Volume 91.8, Mean Corpuscular Hemoglobin 28.4, Mean Corpuscular Hemoglobin Concent 30.9L, Red Cell Distribution Width 17.6H, Platelet Count 434, Neutrophils (%) (Auto) 76.1H, Lymphocytes (%) (Auto) 13.4L, Monocytes (%) (Auto) 7.2H, Eosinophils (%) (Auto) 1.6, Basophils (%) (Auto) 0.4, Neutrophils # (Auto) 10.4H, Lymphocytes # (Auto) 1.8, Monocytes # (Auto) 1.0H, Eosinophils # (Auto) 0.2, Basophils # (Auto) 0.1, Nucleated Red Blood Cells % (auto) 0.0, Anion Gap 8, Glomerular Filtration Rate 57.7L, Blood Urea Nitrogen 12, Creatinine 1.13, Sodium Level 136, Potassium Level 2.9*L, Chloride Level 99, Carbon Dioxide Level 29, Calcium Level 8.0L CBC/BMP Laboratory Tests 01/20/19 15:23 01/20/19 21:55 01/21/19 05:52 Red Blood Count 3.31 L, Mean Corpuscular Volume 91.8, Mean Corpuscular Hemoglobin 28.4, Mean Corpuscular Hemoglobin Concent 30.9 L, Red Cell Distribution Width 17.6 H, Neutrophils (%) (Auto) 76.1 H, Lymphocytes (%) (Auto) 13.4 L, Monocytes (%) (Auto) 7.2 H, Eosinophils (%) (Auto) 1.6, Basophils (%) (Auto) 0.4, Neutrophils # (Auto) 10.4 H, Lymphocytes # (Auto) 1.8, Monocytes # (Auto) 1.0 H, Eosinophils # (Auto) 0.2, Basophils # (Auto) 0.1, Calcium Level 8.0 L Microbiology Microbiology 01/20/19 Gastrointestinal Tract Panel (PCR) - Final, Complete Impression Lower GI bleed most likely from over anticoagulation. Has not recurred since the event. Morbid obesity Mental retardation Ventral and parastomal hernia recurrence In terms of the lower GI bleeding, discussed with her mom that I it is okay for me for her to resume her anticoagulation at this point and observe if she will rebleed. If she does rebleed the definitely will need to do a colonoscopy. If she does okay then we can plan for an elective colonoscopy later on. I also discussed with her that it seems like she has recurrence in her midline hernia as well as the parastomal hernia though she seems to be more symptomatic from her parastomal hernia. This may be contributing to the fecal retention though there is no signs of obstruction at this point. She does take lactulose as needed. I think putting her on some scheduled dose of a bowel regimen will help her. At this point we'll try lactulose every other day and see how this affects her bowel movements. The top case given her history of multiple repairs, reports of multiple adhesions and now recurrence of the hernia. Patient and mom wishes to avoid surgery if needed. She seems to be symptomatic from her her hernia but not at the point yet that she needs any emergent or urgent surgery. At some point this may be a possibility. She is okay to follow-up with me as an outpatient with regards to this and we can continue to conversation with regards to when and if and how the hernia may be repaired. Plan / VTE VTE Prophylaxis Ordered?: Yes FELIX JULIAN MD Jan 21, 2019 11:01
[2019-01-21] MEDS ORDERED: SLF 3 ML SYR IV PRN (12:15)
[2019-01-21 12:17] LABS: HEMATOCRIT 30.3 % (36.0-47.0); HEMOGLOBIN 9.4 g/dl (12.0-15.5)
[2019-01-21] MEDS: SLF 3 ML SYR IV SCH ×2 (14:36→22:00)
[2019-01-21 16:00] VITALS: BP 119/57
[2019-01-21] MEDS ORDERED: WARFARIN SOD 5 MG TAB PO ONE (17:00)
[2019-01-21] MEDS ORDERED: WARFARIN SOD 5 MG TAB PO SCH (17:00)
[2019-01-21 20:00] VITALS: BP 101/54
--- NOTE | 2019-01-22 00:01 | IPN ---
DATE: 01/21/2019 Patient denies any recurrent hematochezia via the colostomy tube. There have been no blood clots, no maroon or melanotic stools through the output. INR this morning is 1.74. Per surgery, Dr. Aldrich, patient's diet may be advanced as well as anticoagulation may be resumed. There are no plans to do esophagogastroduodenoscopy (EGD) for the patient to rule out or identify where the bleeding is. Her Coumadin had been held, but currently being resumed per surgical recommendations. Patient's family is adamant that no diagnostic intervention be done and did not want any EGD to further evaluate patient's bleeding. Overall plan is to continue with warfarin, and should the patient have recurrent bleeding, family may reconsider looking into site of bleed and go from there. She has a history of deep vein thrombosis (DVT) and risk for pulmonary embolism (PE). She still continually complains of abdominal pain but okay to resume an oral diet per surgery. Per the mother at the bedside, she also had had complaints of some hematuria at home, suprapubic pain, and flank pain. She is currently on Cipro for the colitis. Urinalysis (UA) was not impressive for a urinary tract infection (UTI). It shows 14 white blood cells (WBC), 1+ bacteria. Urine culture not sent. We will recheck a UA. Per the mother, patient transferred from bed to the bedside recliner. Denies any chest pain, pressure, tightness, palpitations, or lightheadedness at the moment. VITAL SIGNS: Temperature 98.6, pulse 78, respiratory rate 20, blood pressure 108/59, 94%, 100% on room air. GENERAL: Patient is awake, alert, oriented, supine in the bedside recline with her lower extremities elevated. She is anicteric. No jaundice. No use respiratory accessory muscles. Mother speaks for her. She is moaning at the bedside. No jugular venous distention (JVD), thyromegaly. LUNGS: Clear. Air entry is equal. HEART: S1, S2, sinus rhythm. No murmurs. ABDOMEN: Multiple abdominal scars that are well healed. Otherwise, colostomy bag is clear. Slightly tender around the medial aspect of it but no rebound or guarding. Positive bowel sounds all four quadrants. EXTREMITIES: Chronic edema. ASSESSMENT AND PLAN: This is a 38-year-old female, cared for by her mother with Down syndrome, Hirschsprung's, Raynaud's, deep vein thrombosis (DVT) in the left leg and right arm, on chronic warfarin, hypothyroidism, obstructive sleep apnea (DORIS), floppy eyelid syndrome, colostomy with 32 abdominal surgeries and reversal not being successful. Last operated on by general surgeon, Dr. Suero, at [facility], presented with abdominal discomfort. INR of 10. Was given vitamin K and fresh frozen plasma (FFP) 1 unit with repeat INR of 2.02 and currently on 1.64, admitted for colitis found on CT abdomen and Coumadin-induced coagulopathy. CURRENT ISSUES: 1. Acute colitis, on intravenous (IV) Cipro, Flagyl, famotidine every 12 hours, and morphine as needed. Surgery was consulted for gastrointestinal (GI) bleed through the colostomy tube with no plans for esophagogastroduodenoscopy (EGD) with recommendations to continue antibiotics, advance the diet. 2. Warfarin-induced coagulopathy. Warfarin has been held initially on admission. Had received one dose of vitamin K and FFP with a repeat INR of 2.02 and currently at 1.64. No further evaluation in terms of EGD have been decided by general surgery along with the patient's mother. At this time surgery is recommending resumption of the warfarin in light of prior history of deep vein thrombosis (DVT). Currently on 5 mg daily. Repeat INR. If repeat blood loss is noted via the colostomy tube, this will then be . 3. Acute gastrointestinal (GI) bleed via the colostomy. Hemoglobin and hematocrit remain stable. Patient has not needed red blood cell (RBC) transfusion. Thought to be related to elevated INR with 10 on admission, currently improved, then resume back on Coumadin. 4. Acute blood loss anemia secondary to GI bleed. Hemoglobin and hypertension remain stable. Not require blood transfusion. 5. History of Hirschsprung disease with prior multiple surgeries in the past and nonreversible colostomy. 6. History of ventral incisional hernia repair with mesh or adhesions in the past and multiple abdominal surgeries. Currently with abdominal pain, being treated for colitis but no signs of bowel obstruction. 7. Partial hysterectomy. Drainage of tubo-ovarian abscess in 2010. Per the mother, patient occasionally has hematuria. A UA was checked initially on admission. She is currently on Cipro. There appears to be no overt urinary tract infection noted on the UA. Will repeat the UA as the patient continues to complain of suprapubic pain as well as persistent occasional spotting. 8. Hypothyroidism, resumed on home dose of Synthroid.
[2019-01-22] MEDS: metroNIDAZOLE 500 MG in APPROPRIATE DILUENT 1 EA IV SCH ×2 (01:12→10:21)
[2019-01-22] MEDS: CIPROFLOXACIN 400 MG in APPROPRIATE DILUENT 1 EA IV SCH (02:36)
[2019-01-22 04:00] VITALS: BP 91/50
[2019-01-22] MEDS: LEVOTHYROXINE 100MCG TABLET (0.1MG) PO SCH (05:30)
[2019-01-22] MEDS: LEVOTHYROXINE 25MCG TABLET (0.025MG) PO SCH (05:30)
[2019-01-22] MEDS: FAMOTIDINE IV BAG 20 MG in APPROPRIATE DILUENT 1 EA IV SCH (05:30)
[2019-01-22] MEDS: SLF 3 ML SYR IV SCH ×2 (05:42→13:56)
[2019-01-22 06:12] LABS: BASO # 0.1 10^3/uL (0.0-0.2); BASO % 0.5 % (0.0-1.0); EOS # 0.2 10^3/uL (0.0-0.50); EOS % 1.4 % (0.0-3.0); HEMATOCRIT 30.7 % (36.0-47.0); HEMOGLOBIN 9.5 g/dl (12.0-15.5); LYMPH # 1.7 10^3/uL (1.5-4.5); LYMPH % 13.1 % (24.0-44.0); MEAN CORPUSCULAR HEMOGLOBIN 28.6 pg (27.0-33.0); MEAN CORPUSCULAR HGB CONC 30.9 g/dl (32.0-36.5); MEAN CORPUSCULAR VOLUME 92.5 fl (80.0-96.0); MONO # 1.1 10^3/uL (0.0-0.8); MONO % 8.4 % (0.0-5.0); NEUTROPHILS # 9.9 10^3/uL (1.8-7.7); NEUTROPHILS % 75.2 % (36.0-66.0); PLATELET COUNT, AUTOMATED 415 10^3/uL (150-450); RED BLOOD COUNT 3.32 10^6/uL (4.00-5.40); WHITE BLOOD COUNT 13.2 10^3/uL (4.0-10.0)
[2019-01-22 06:22] LABS: INR 1.77; PROTHROMBIN TIME 20.4 SECONDS (11.8-14.0)
[2019-01-22 06:29] LABS: BLOOD UREA NITROGEN 10 MG/DL (7-18); CALCIUM LEVEL 8.1 MG/DL (8.5-10.1); CARBON DIOXIDE LEVEL 26 MEQ/L (21-32); CHLORIDE LEVEL 102 MEQ/L (98-107); CREATININE FOR GFR 1.06 MG/DL (0.55-1.30); GLOMERULAR FILTRATION RATE > 60.0 (>60); GLUCOSE, FASTING 106 MG/DL (70-100); POTASSIUM SERUM 3.5 MEQ/L (3.5-5.1); SODIUM LEVEL 134 MEQ/L (136-145)
[2019-01-22 08:00] VITALS: BP 106/55
[2019-01-22] MEDS: SENOKOT S TAB PO SCH ×2 (10:21→21:05)
[2019-01-22] MEDS: NYSTATIN 100,000 UNITS/GM TOPICAL PWD 15 GM TOP SCH ×2 (10:21→21:05)
[2019-01-22] MEDS: LORazepam 2 MG/ML VIAL (J2060) IV PRN (10:41)
[2019-01-22] MEDS: ENOXAPARIN 150 MG/ML SYR (J1650) SC SCH ×2 (12:06→23:26)
--- NOTE | 2019-01-22 13:26 | REP ---
Bilateral lower extremity Duplex Doppler venous ultrasound: Real time compression and duplex Doppler interrogation of the bilateral lower extremity deep venous system is performed. Bilaterally, the common femoral, superficial femoral and popliteal veins are fully compressible with transducer pressure and demonstrate normal spontaneous and phasic flow, without evidence of deep venous thrombosis. Impression: No evidence of deep venous thrombosis of the bilateral lower extremity femoral popliteal venous system. Electronically Signed by Wilfredo Simon MD 01/22/2019 10:05 A
[2019-01-22 15:41] VITALS: BP 134/81
[2019-01-22] MEDS ORDERED: WARFARIN SOD 7.5 MG TAB PO SCH (17:00)
[2019-01-22] MEDS: CIPROFLOXACIN 500 MG TAB PO SCH (17:21)
[2019-01-22] MEDS: metroNIDAZOLE (FLAGYL) 500 MG TAB PO SCH (21:05)
[2019-01-22 22:00] VITALS: BP 124/67
[2019-01-23] MEDS: SLF 3 ML SYR IV SCH ×3 (02:14→13:44)
[2019-01-23] MEDS: metroNIDAZOLE (FLAGYL) 500 MG TAB PO SCH ×2 (05:45→13:43)
[2019-01-23] MEDS: LEVOTHYROXINE 100MCG TABLET (0.1MG) PO SCH (05:45)
[2019-01-23] MEDS: LEVOTHYROXINE 25MCG TABLET (0.025MG) PO SCH (05:46)
[2019-01-23] MEDS: CIPROFLOXACIN 500 MG TAB PO SCH ×2 (05:46→17:48)
[2019-01-23 06:00] VITALS: BP 126/81
[2019-01-23 06:01] LABS: BASO # 0.1 10^3/uL (0.0-0.2); BASO % 0.7 % (0.0-1.0); EOS # 0.3 10^3/uL (0.0-0.50); EOS % 2.4 % (0.0-3.0); HEMATOCRIT 31.2 % (36.0-47.0); HEMOGLOBIN 9.6 g/dl (12.0-15.5); LYMPH # 2.1 10^3/uL (1.5-4.5); LYMPH % 16.9 % (24.0-44.0); MEAN CORPUSCULAR HEMOGLOBIN 29.2 pg (27.0-33.0); MEAN CORPUSCULAR HGB CONC 30.8 g/dl (32.0-36.5); MEAN CORPUSCULAR VOLUME 94.8 fl (80.0-96.0); NEUTROPHILS # 8.6 10^3/uL (1.8-7.7); PLATELET COUNT, AUTOMATED 422 10^3/uL (150-450); RED BLOOD COUNT 3.29 10^6/uL (4.00-5.40); WHITE BLOOD COUNT 12.2 10^3/uL (4.0-10.0)
[2019-01-23 06:16] LABS: BLOOD UREA NITROGEN 10 MG/DL (7-18); CARBON DIOXIDE LEVEL 27 MEQ/L (21-32); CHLORIDE LEVEL 103 MEQ/L (98-107); CREATININE FOR GFR 1.05 MG/DL (0.55-1.30); GLOMERULAR FILTRATION RATE > 60.0 (>60); GLUCOSE, FASTING 107 MG/DL (70-100); POTASSIUM SERUM 3.4 MEQ/L (3.5-5.1); SODIUM LEVEL 137 MEQ/L (136-145)
[2019-01-23 06:22] LABS: INR 1.9; PROTHROMBIN TIME 21.5 SECONDS (11.8-14.0)
[2019-01-23] MEDS ORDERED: CIPR-249 PO (07:54)
[2019-01-23] MEDS ORDERED: FLAG500T PO (07:54)
[2019-01-23] MEDS: SENOKOT S TAB PO SCH (08:51)
[2019-01-23] MEDS: NYSTATIN 100,000 UNITS/GM TOPICAL PWD 15 GM TOP SCH (08:51)
[2019-01-23] MEDS: LACTULOSE 20 GM/30 ML SYRUP UD PO SCH (08:51)
[2019-01-23] MEDS ORDERED: WARFARIN SOD 7.5 MG TAB PO ONE (09:00)
[2019-01-23] MEDS: ENOXAPARIN 150 MG/ML SYR (J1650) SC SCH ×2 (11:25→18:36)
[2019-01-23 14:00] VITALS: BP 130/65
[2019-01-23] MEDS ORDERED: LORazepam 0.5 MG TAB PO PRN (14:45)
--- NOTE | 2019-01-23 16:28 | IPN ---
DATE: 01/22/2019 Per the mother at the bedside, the patient has no more recurrent hematochezia, melena, blood clots through the colostomy tube. She continues to complain of epigastric discomfort but denied any nausea or vomiting and still wanted to continue with her solid diet. Per general surgery, the patient was stable to increase to a solid diet. The mother was agreeable to bridge therapy with Lovenox despite recent history of bleeding, in order to augment the patient's Coumadin level in order for her to be discharged home soon. The patient is wanting to be released from the hospital in the next 1 to 2 days and has been moaning and crying at bedside to her mother that she does not want to stay here any longer. The patient's mother has also requested for us to discontinue the patient's peripheral line as it hurts her. We had requested that it remain in place until the day of discharge for emergency purposes in case IV medications need to be administered in an emergency situation. She was agreeable to changing the antibiotics to oral antibiotics now that the patient is able to take oral diet. Cipro and Flagyl have been changed to oral medications. Today, INR remains subtherapeutic at 1.77. Repeat vascular ultrasound of bilateral lower extremities shows no evidence of deep vein thrombosis (DVT). Family is wanting to pursue bridge therapy to get to a therapeutic level in light of no recurrent gastrointestinal bleed. The patient has been stable off telemetry and may be transferred over to medical/surgical floor. Mother was in agreement with this. VITAL SIGNS: Temperature 99.9, pulse 84, respiratory rate 18, blood pressure 134/81, 94% on room air. GENERAL: The patient is awake, alert, oriented. Mother does most of the conversation. The patient mumbles and often times is not coherent. She often times says "I want to go home. I want to eat." Pupils are round and reactive. No jugular venous distention (JVD). No thyromegaly. Poor dentition. Missing teeth. Moist mucous membranes. LUNGS: Clear to auscultation. No wheezing or rales. HEART: S1, S2. Sinus rhythm. ABDOMEN: Soft, slightly tender around the colostomy site in medial and upper aspects. There is no blood or melena noted on the colostomy bag. EXTREMITIES: Chronic venous wounds noted on the lower extremities, to be managed by wound care and teleconference with Dr. Pinto. ASSESSMENT AND PLAN: This is a 38-year-old female who is cared for by her mother with a past medical history significant for Down syndrome, Hirschsprung's, Raynaud's, deep vein thrombosis (DVT) in the left leg and right arm, on chronic warfarin, hypothyroidism, obstructive sleep apnea (DORIS), floppy eyelid syndrome, colostomy with 32 abdominal surgeries and reversal not being successful. Last operated on by Dr. Suero at [facility], presented with abdominal discomfort. INR of 10. Was given vitamin K and fresh frozen plasma (FFP) 1 unit with repeat INR of 2.02 , admitted for colitis found on CT abdomen and Coumadin-induced coagulopathy. CURRENT ISSUES: 1. Acute colitis. Currently on Cipro, Flagyl, changed to oral medications, as she is tolerating an oral diet, which has been advanced by general surgery. 2. Acute gastrointestinal bleed via the colostomy. Hemoglobin and hematocrit have remained stable. She has not required red blood cell transfusion secondary to warfarin induced coagulopathy. Resumed back on Coumadin with no plan for esophagogastroduodenoscopy (EGD) or colonoscopy due to complicated multiple surgeries in the past, managed by general surgery. 3. Warfarin-induced coagulopathy. Warfarin has been held initially on admission. The patient did receive 1 unit fresh frozen plasma and vitamin K. Repeat INR of 2.02. No evaluation in terms of EGD for gastrointestinal bleed. 4. Acute blood loss anemia secondary to gastrointestinal bleed. Hemoglobin and hematocrit remain stable. Vitals appear stable. No plans for evaluation. The patient has been placed back on warfarin. 5. History of deep vein thrombosis (DVT) in bilateral lower extremities. No acute DVT at this time. The patient's mother is requesting for the patient to be released quickly and understands that often times it takes several days for the warfarin to be therapeutic without bridge therapy. She agrees with Lovenox injections along with warfarin and agrees with her general surgeon to resume anticoagulation in light of no active gastrointestinal bleeding. 6. History of Hirschsprung disease with prior multiple surgeries, unable to be reversed. Currently with a colostomy. 7. History of ventral incisional hernia repair with mesh and adhesions in the past and multiple abdominal surgeries. Currently with colitis, being treated. No signs of bowel obstruction. 8. Partial hysterectomy with drainage of tubo-ovarian abscess in 2010. Per the patient's mother, she has occasionally hematuria. UA has been checked. Urine culture on 01/21/2019 was no growth. The patient's mother insists that she has a urinary tract infection. The patient is still being treated for colitis with ciprofloxacin. DISPOSITION: The patient may be discharged as soon as INR is therapeutic at 2.
[2019-01-23 17:25] LABS: INR 1.87; PROTHROMBIN TIME 21.3 SECONDS (11.8-14.0)
--- NOTE | 2019-01-25 21:16 | DSES ---
DATE OF ADMISSION: 01/20/2019 DATE OF DISCHARGE: 01/23/2019 CONSULTANTS: General surgeon, Dr. Aldrich PRIMARY DISCHARGE DIAGNOSES: Acute colitis, warfarin induced coagulopathy leading to acute gastrointestinal (GI) bleed via the colostomy, acute blood loss anemia not requiring red blood cell transfusion, history of deep venous thrombosis (DVT) in bilateral lower extremities, morbid obesity, body mass index (BMI) of 67, Down's syndrome, Raynaud's, floppy eyelid syndrome, obstructive sleep apnea (DORIS), hypothyroidism, 32 abdominal surgeries with colostomy reversal not successful, warfarin induced coagulopathy requiring fresh frozen plasma (FFP) reversal one unit and vitamin K, acute blood loss anemia secondary to GI bleed, warfarin induced coagulopathy, acute GI bleed via colostomy, history of DVT, history of Hirschsprung disease, history of ventral incisional hernia repair, history of partial hysterectomy. DISCHARGE MEDICATIONS: - Cipro 500 twice a day - Flagyl 500 every 8 hours - vitamin D 50,000 every 2 weeks - Flonase - Synthroid 200 mcg daily - nystatin - ranitidine one tablet nightly - warfarin 5 mg six times a week, 2.5 mg once a week HOSPITAL COURSE: This is a 38-year-old female who presented to the emergency room with bright red discharge through the colostomy. CT scan showed acute colitis. She was afebrile complaining of abdominal pain with nausea, no vomiting. She was started on Cipro, Flagyl, nothing by mouth diet, and IV fluids. She was seen by general surgery who recommended reversal of the INR due to INR of 10 from warfarin induced coagulopathy. She subsequently had a repeat INR of 2.02 after vitamin K and one unit FFP. Bleeding stopped and patient did not require red blood cell transfusion. She had no recurrent episodes of bleeding, was advanced slowly on a diet from clears to full liquids to a low residue diet which she tolerated well. She had no fevers or chills. Patient was then subsequently evaluated for acute DVT with ultrasound of the lower extremities which was negative. Due to the patient wanting to go home soon and no recurrent episodes of blood loss anemia and GI bleed, patient was bridged with Lovenox 150 mg subcutaneous every 12 hours as well as warfarin 7.5 mg times two doses with subsequent discharge INR of 1.9 and 1.87. Patient's mother was adamant about being discharged. She is to have repeat INR as outpatient and to call these numbers in to us. LABORATORY DATA ON DISCHARGE: INR 1.87, white count 12, hemoglobin 9.6, hematocrit 31, platelet count 422, sodium 137, potassium 3.4, chloride 103, bicarbonate 27, BUN 10, creatinine 1.05, glucose of 107. Hemoccult stool is positive, urine culture is negative, no growth, and GI panel on 01/20/2019 was negative. IMAGING STUDIES: CT abdomen and pelvis shows acute colitis. Venous ultrasound 01/22/2019 shows no DVT.
== END 2019-01-23 18:59 | disposition home or self-care (01) | DRG 661 ==
LOC: M ED 19:11 → M ED INP 01-20 03:26 → M PCU 01-20 05:42 → M MSPAV 01-22 15:30
PROVIDERS: ADMIT Internal Medicine Nephrology; ATTEND General Practice
PROC: 30233K1 Transfusion of Nonautologous Frozen Plasma into Peripheral Vein, Percutaneous Approach (ICD-10-PCS; principal; 2019-01-20)
DX: D68.32 Hemorrhagic disorder due to extrinsic circulating anticoagulants (principal); D62 Acute posthemorrhagic anemia; Q43.1 Hirschsprung's disease; N13.30 Unspecified hydronephrosis; K92.2 Gastrointestinal hemorrhage, unspecified; Z68.44 Body mass index [BMI] 60.0-69.9, adult; E83.51 Hypocalcemia; E66.01 Morbid (severe) obesity due to excess calories; K52.9 Noninfective gastroenteritis and colitis, unspecified; Q90.9 Down syndrome, unspecified; G47.33 Obstructive sleep apnea (adult) (pediatric); H21.81 Floppy iris syndrome; F79 Unspecified intellectual disabilities; T45.515A Adverse effect of anticoagulants, initial encounter; K43.5 Parastomal hernia without obstruction or gangrene; K43.9 Ventral hernia without obstruction or gangrene; I73.00 Raynaud's syndrome without gangrene; Z93.3 Colostomy status; Z86.718 Personal history of other venous thrombosis and embolism; Z79.01 Long term (current) use of anticoagulants; Z79.899 Other long term (current) drug therapy

== ENCOUNTER → 2019-01-27 | Outpatient (REF) | payer BC, MEDICAID ==
[~2019-01-27] MED LIST changes: +CIPR-249 PO; +FLAG500T PO; +VITA1CAP25 PO
[2019-01-27 13:34] LABS: BASO # 0.1 10^3/uL (0.0-0.2); EOS # 0.2 10^3/uL (0.0-0.50); EOS % 2.5 % (0.0-3.0); HEMATOCRIT 33.9 % (36.0-47.0); HEMOGLOBIN 10.2 g/dl (12.0-15.5); LYMPH # 1.8 10^3/uL (1.5-4.5); LYMPH % 26.6 % (24.0-44.0); MEAN CORPUSCULAR HEMOGLOBIN 29.1 pg (27.0-33.0); MEAN CORPUSCULAR HGB CONC 30.1 g/dl (32.0-36.5); MEAN CORPUSCULAR VOLUME 96.6 fl (80.0-96.0); MONO # 0.6 10^3/uL (0.0-0.8); MONO % 8.7 % (0.0-5.0); NEUTROPHILS # 4.1 10^3/uL (1.8-7.7); NEUTROPHILS % 59.9 % (36.0-66.0); PLATELET COUNT, AUTOMATED 507 10^3/uL (150-450); RED BLOOD COUNT 3.51 10^6/uL (4.00-5.40); WHITE BLOOD COUNT 6.9 10^3/uL (4.0-10.0)
[2019-01-27 13:39] LABS: BLOOD UREA NITROGEN 10 MG/DL (7-18); CALCIUM LEVEL 7.5 MG/DL (8.5-10.1); CARBON DIOXIDE LEVEL 28 MEQ/L (21-32); CHLORIDE LEVEL 104 MEQ/L (98-107); CREATININE FOR GFR 1.01 MG/DL (0.55-1.30); GLOMERULAR FILTRATION RATE > 60.0 (>60); GLUCOSE, FASTING 101 MG/DL (70-100); SODIUM LEVEL 139 MEQ/L (136-145)
[2019-01-27 13:57] LABS: INR 4.41; PROTHROMBIN TIME 42.3 SECONDS (11.8-14.0)
== END ==
LOC: M SFHCPLAZ 11:55
PROVIDERS: ATTEND Nurse Practitioner Family
DX: Z51.81 Encounter for therapeutic drug level monitoring (principal); D62 Acute posthemorrhagic anemia; K52.9 Noninfective gastroenteritis and colitis, unspecified

== ENCOUNTER → 2019-08-03 | Outpatient (REF) | payer BC, MEDICAID ==
[~2019-08-03] MED LIST changes: +RANI-397 PO; -RANI1TAB6 PO
[2019-08-03 20:35] LABS: ALBUMIN 2.8 GM/DL (3.2-5.2); BILIRUBIN,TOTAL 0.3 MG/DL (0.2-1.0); CALCIUM LEVEL 8.3 MG/DL (8.5-10.1); CREATININE FOR GFR 1.12 MG/DL (0.55-1.30); FREE T4 1.48 NG/DL (0.76-1.46); POTASSIUM SERUM 4.3 MEQ/L (3.5-5.1); THYROID STIMULATING HORMONE 0.271 uIU/ML (0.358-3.740); TOTAL PROTEIN 8.2 GM/DL (6.4-8.2)
[2019-08-03 20:57] LABS: TOTAL 25(OH) VITAMIN D 46.9 NG/ML (30.0-100.0)
== END ==
LOC: M SFHCLERA 18:17
PROVIDERS: ATTEND Nurse Practitioner Family
DX: E66.01 Morbid (severe) obesity due to excess calories (principal); E03.9 Hypothyroidism, unspecified; E55.9 Vitamin D deficiency, unspecified

== ENCOUNTER 2019-08-23 23:59 | Inpatient (IN) | payer BC, MEDICAID ==
[~2019-08-23] VITALS: Ht 146.1 cm; Wt 151.5 kg
[2019-08-24 00:56] LABS: BASO # 0.1 10^3/uL (0.0-0.2); BASO % 0.3 % (0.0-1.0); HEMATOCRIT 42.1 % (36.0-47.0); HEMOGLOBIN 13.1 g/dl (12.0-15.5); LYMPH # 0.9 10^3/uL (1.5-5.0); MEAN CORPUSCULAR HEMOGLOBIN 28.8 pg (27.0-33.0); MEAN CORPUSCULAR HGB CONC 31.1 g/dl (32.0-36.5); MEAN CORPUSCULAR VOLUME 92.5 fl (80.0-96.0); MONO # 0.5 10^3/uL (0.0-0.8); MONO % 2.3 % (0.0-5.0); NEUTROPHILS # 19.9 10^3/uL (1.5-8.5); NEUTROPHILS % 92.6 % (36.0-66.0); PLATELET COUNT, AUTOMATED 255 10^3/uL (150-450); RED BLOOD COUNT 4.55 10^6/uL (4.00-5.40); WHITE BLOOD COUNT 21.5 10^3/uL (4.0-10.0)
[2019-08-24 01:12] LABS: INR 2.51; PROTHROMBIN TIME 26.9 SECONDS (11.8-14.0)
[2019-08-24 01:13] LABS: PARTIAL THROMBOPLASTIN TIME 34.8 SECONDS (25.0-38.4)
[2019-08-24 01:25] LABS: ALBUMIN 2.7 GM/DL (3.2-5.2); BILIRUBIN,DIRECT 0.2 MG/DL (0.0-0.2); BILIRUBIN,TOTAL 0.7 MG/DL (0.2-1.0); TOTAL PROTEIN 7.9 GM/DL (6.4-8.2)
[2019-08-24] MEDS ORDERED: LORazepam 2 MG/ML VIAL (J2060) IV STA ×2 (02:21→07:42)
[2019-08-24] MEDS ORDERED: ACETAMINOPHEN TAB 650MG DOSE (2X325MG) PO ONE (02:30)
[2019-08-24] MEDS ORDERED: ONDANSETRON 4MG/2ML VIAL (J2405) IV ONE (02:30)
[2019-08-24] MEDS ORDERED: LORazepam 2 MG/ML VIAL (J2060) As Ordered ONE (02:38)
[2019-08-24] MEDS: GASTROGRAFIN SOLUTION 30ML PO SCH ×2 (03:06→03:30)
[2019-08-24] MEDS ORDERED: ISOVUE-370 76% 100ML VIAL (Q9967) As Ordered ONE (04:25)
--- NOTE | 2019-08-24 06:35 | REPVR ---
PROCEDURE INFORMATION: Exam: CT Abdomen And Pelvis With Contrast Exam date and time: 08/24/2019 5:23 AM Age: 39 years old Clinical indication: Abdominal pain; Prior surgery; Surgery date: 6+ months; Additional info: Abd pain, extensive surgical HX, concern for abscess TECHNIQUE: Imaging protocol: Computed tomography of the abdomen and pelvis with intravenous contrast. Radiation optimization: All CT scans at this facility use at least one of these dose optimization techniques: automated exposure control; mA and/or kV adjustment per patient size (includes targeted exams where dose is matched to clinical indication); or iterative reconstruction. Contrast material: ISO 370; Contrast volume: 100 ml; Contrast route: IV; COMPARISON: CT ABD/PEL W/IV ORAL CONTRAS 01/06/2019 7:14 PM FINDINGS: Lungs: Minimal left lower lobe atelectasis and possible infiltrate. Liver: The liver attenuation is 68 Hounsfield units and the spleen is 111 Hounsfield units. Gallbladder and bile ducts: Normal. No calcified stones. No ductal dilation. Pancreas: Normal. No ductal dilation. Spleen: The spleen measures 9.5 cm. Adrenals: Normal. No mass. Kidneys and ureters: Normal. No hydronephrosis. Stomach and bowel: Left lower quadrant colostomy with distal colonic resection. There is a pelvic ventral wall hernia centered to the left of midline containing bowel segments no strangulation or obstruction. There is an ostomy hernia. The distal colon within the hernia demonstrates wall thickening pericolonic induration stranding to a small fluid collection measuring 2.5 x 1.8 x 2.7 cm and may reflect a small abscess which is decreased since the prior study. Appendix: There are no changes of appendicitis. A normal appendix is not seen. Intraperitoneal space: Unremarkable. No free air. No significant fluid collection. Vasculature: Large azygos vein. There is essentially absence of the iliac veins and proximal IVC with large subcutaneous venous collaterals extending around the abdomen large left gonadal vein measuring 11 mm extending from left adnexal venous varicosities which are probably collaterals from the lower extremities. Lymph nodes: External iliac nodes are present with large fatty andre consistent benign etiology. Bladder: Unremarkable as visualized. Reproductive: Unremarkable as visualized. Bones/joints: Unremarkable. No acute fracture. Soft tissues: Unremarkable. IMPRESSION: 1. Distal colonic resection with left lower quadrant colostomy with associated ostomy hernia. As the colon extends into the hernia, there is colonic wall thickening with pericolonic induration and influence suggesting inflammatory change or segmental colitis. There is some stranding to a small fluid collection at the posterior aspect of the hernia sac which may reflect small abscess measuring 2.5 x 1.8 x 2.7 cm, however, this is considerably decreased in size since 01/06/2019 may reflect minimal chronic residua. 2. 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 3. Minimal left lower lobe atelectasis and possible minimal infiltrate. 4. Mild fatty infiltration of the liver. 5. Resolution of right obstructive uropathy since the prior study Electronically signed by: Feliz Eller On 08/24/2019 06:34:51 AM
[2019-08-24] MEDS ORDERED: metroNIDAZOLE 500 MG in IV 1 EA IV ONE (07:00)
[2019-08-24] MEDS ORDERED: CIPROFLOXACIN 400 MG in IV 1 EA IV ONE (07:00)
[2019-08-24] MEDS ORDERED: VITA50005 PO (07:40)
[2019-08-24] MEDS ORDERED: WARF-18 PO (07:42)
[2019-08-24] MEDS ORDERED: ACET-683 PO (07:43)
[2019-08-24] MEDS ORDERED: MORPHINE 2 MG/ML 1ML VIAL (J2270) IV PRN (11:45)
--- NOTE | 2019-08-24 12:42 | HPE ---
DATE OF ADMISSION: 08/24/2019 PRIMARY CARE PROVIDER: Fawn Puente NP, [place] [facility]. CHIEF COMPLAINT: Abdominal pain and possible cellulitis of abdominal wall. HISTORY: Tanika Marie is a 39-year-old with Down syndrome who has had enumerable abdominal procedures performed who presents with lower abdominal pain. There is erythema of the lower abdominal wall. She has been seen by Dr. Aldrich in the emergency room, asking to be admitted to the hospitalist service and he will follow as surgical consultation. She was seen for abdominal pain and distention. She had a painful abdominal rash and some lower abdominal pain for the past day. She is not able to give a history, but that is what was provided by the emergency room. PAST MEDICAL HISTORY: I reviewed her office record. She has a history of: Hirschsprung's disease. She has had 13 abdominal surgeries, which were unsuccessful at reversing her colostomy. Has Raynaud's syndrome. History of deep vein thromboses of her left leg in 1997, right leg 2009, right arm 2010 for which she is on chronic anticoagulant therapy with warfarin. Hypothyroidism. Cholesteatoma right ear 2005. Obstructive sleep apnea (DORIS) for which she is unable to tolerate wearing a CPAP. Vitamin D deficiency. 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 History of significant cognitive impairment. SURGICAL HISTORY: Colostomy with 13 abdominal surgeries, unable to reverse the colostomy. Her last colonoscopy 06/22. History of tonsillectomy and adenoidectomy. Partial hysterectomy with drainage of tubo-ovarian abscess, 07/28. Ventral incisional hernia repair with mesh and lysis of adhesions, Dr. Suero, 03/27. FAMILY HISTORY: Mother has hypertension and sleep apnea. SOCIAL HISTORY: Nonsmoking. [facility] resident. No alcohol. HOME MEDICATIONS: - saline eye drops - Colace as needed - Ativan 0.5 mg at bedtime as needed - Flonase spray - Michell 180 mg daily - ranitidine 150 mg twice a day - Drisdol 50,000 units every two weeks - warfarin dose adjusted based in ProTime, currently 5 mg daily except for 2.5 on - levothyroxine 225 mcg daily - nystatin powder ALLERGIES: 1. AUGMENTIN caused severe diarrhea. PHYSICAL EXAMINATION: Temperature 100.7 degrees, 98/51, pulse 78, respiratory rate 18, 93% oxygen saturation. General appearance: She is lying in bed, looks mildly uncomfortable, not able to answer questions. HEENT: Showed Down syndrome appearance. Erythema of both eyes. NECK: Thick. Airway narrow. LUNGS: Decreased breath sounds, but clear. HEART: Regular rate and rhythm. ABDOMEN: Soft. Tender lower abdomen. There is warmth and erythema, lower abdominal from umbilicus to panicular fold. EXTREMITIES: No clubbing or cyanosis, trace peripheral edema. Moves arms and legs with equal strength. LABORATORIES: White count 21.5, hemoglobin 13, platelets 255. Sodium 138, potassium 4.3, BUN 18, creatinine 1.0, albumin low at 2.7, lipase low, lactic acid normal. Her INR is 2.5. IMPRESSION: 1. Abdominal pain, possibly from cellulitis of the lower abdominal wall. She will be admitted to a medical bed, started on antibiotic therapy with ceftaroline. Surgical consultation has been abdomen. CT of the abdomen and pelvis has been obtained and was reviewed. IV fluids have been ordered. Daily labs have been ordered. 2. 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 Her INR is therapeutic. Will hold her warfarin for now and once her INR is less than 2.0 would begin therapeutic doses of Lovenox until it is determined that she is not going to require surgery. At that point, her warfarin could be restarted. She has had at least three DVTs and needs ongoing anticoagulation. 3. Hypothyroidism. Continue her levothyroxine. She takes 225 mcg daily. 4. Allergic rhinitis. We can hold her Flonase and oral antihistamine for now. 5. Presence of colostomy. Suggestive of a small abscess near there. Per Dr. Aldrich this is smaller and approach would be through antibiotic therapy for now.
[2019-08-24 13:00] VITALS: BP 119/75
[2019-08-24] MEDS: ACETAMINOPHEN TAB 650MG DOSE (2X325MG) PO PRN ×2 (13:44→18:19)
[2019-08-24] MEDS: CEFTAROLINE FOSAMIL 600 MG in D5W MINI-BAG PLUS 50 ML IV SCH (14:57)
[2019-08-24] MEDS: DOCUSATE SODIUM 100 MG CAP PO SCH (21:00)
[2019-08-25] MEDS: CEFTAROLINE FOSAMIL 600 MG in D5W MINI-BAG PLUS 50 ML IV SCH ×2 (02:52→14:55)
[2019-08-25] MEDS: ACETAMINOPHEN TAB 650MG DOSE (2X325MG) PO PRN ×2 (03:29→16:19)
[2019-08-25] MEDS ORDERED: LORazepam 1 MG TAB PO ONE (03:45)
[2019-08-25] MEDS: LEVOTHYROXINE 100MCG TABLET (0.1MG) PO SCH (05:44)
[2019-08-25 06:00] VITALS: BP 115/67
[2019-08-25] MEDS ORDERED: LEVOTHYROXINE 75MCG TABLET (0.075MG) PO SCH (06:00)
--- NOTE | 2019-08-25 06:22 | CR.PDOC ---
General Surgery Consultation Date of Consultation 08/25/19 History and Physical CONSULT REPORT FOR: emergency room/hospitalist service REASON FOR CONSULTATION: abdominal pain, ?abscess HISTORY OF PRESENT ILLNESS: Patient is known to me from her previous admissions. 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 She ended up with a permanent colostomy on her left side. She had also prior incisional hernia repairs done and currently has a mesh placed around the midline hernia. She has recurrence of her hernia at the midline and has a long-standing parastomal hernia. She has been having chronic abdominal discomfort either from the mesh or from the hernia itself. She is morbidly obese and mainly bedridden. She has a current BMI of 71. She was brought by her parents at about 12 midnight. They noted that she was a lot more comfortable in her abdomen than usual. When she woke up early Saturday morning she was not her usual self and was not eating well. In the afternoon she was complaining of more pain in her abdomen and her mom noted that her abdomen has some redness around it which progressed through the night which got him concerned. She was also noted to have some low-grade fever. No reported sick contacts or prior history of recent illness requiring antibiotics. She has no open wounds on her abdomen. Her colostomy continues to function normally. PAST MEDICAL HISTORY: 1. Most pertinent for chronic problems include presence of morbid obesity, prese nce of colostomy with associated parastomal hernia, history of recurrent deep vein thrombosis on anticoagulation therapy with warfarin, presence of sleep apnea. PAST SURGICAL HISTORY: INCLUDES: 1. She has had multiple abdominal surgeries to address her Hirschsprung's disease throughout the years. She had an open ventral/incisional hernia repair with an onlay mesh [place] [address] Suero. ALLERGIES: Please see below. HOME MEDICATIONS: Please see below. REVIEW OF SYSTEMS: She's been independent from care by her parents. Prior to last Saturday has been at her usual state. She does have chronic abdominal pain. She has a known midline and parastomal hernia. Her colostomy continues to function well. Mom denies any recent hospitalization. She remains on Coumadin for recurrent DVTs. PHYSICAL EXAMINATION: VITALS SIGNS: Please see below. GENERAL APPEARANCE: Patient initially was asleep when I entered, upon making the was crying, looks somewhat uncomfortable although when distracted, she actually stopped crying and was carrying a conversation with mom.. SKIN: Skin is flushed, warm and dry. HEENT: [Normocephalic, atraumatic. [place] palpebral conjunctiva, anicteric sclerae. Lips and mucosa appear dry]. NECK: Short neck. LUNGS: [Clear to auscultation bilaterally. No wheezing appreciated]. HEART: [No chest wall abnormalities. Regular rate and rhythm with no murmurs appreciated]. ABDOMEN: Abdomen is morbidly obese with prominence of the upper abdomen at the midline. She has loose draping pannus from her obesity but fairly symmetrical in appearance as she is lying supine flat, soft. She has a left-sided colostomy which is flush at skin level but appears healthy and is functioning. She has loose brown stool in the bag. I do not appreciate any skin breakdown or open wounds. She has a wide band of erythema stretching from the right side of the abdomen crossing through the hole of the abdomen to the left flank. There is more prominent ecchymotic like erythema over the right paramedian area. There is no medication of the area of erythema at the edges. There are no crepitus, blistering. Area is warm to touch, tender to touch. EXTREMITIES: Chronically swollen lower extremity ANCILLARIES: . LABORATORY DATA: Please see below. IMAGING STUDIES: CT abdomen and pelvis 1. Distal colonic resection with left lower quadrant colostomy with associated ostomy hernia. As the colon extends into the hernia, there is colonic wall thickening with pericolonic induration and influence suggesting inflammatory change or segmental colitis. There is some stranding to a small fluid collection at the posterior aspect of the hernia sac which may reflect small abscess measuring 2.5 x 1.8 x 2.7 cm, however, this is considerably decreased in size since 01/06/2019 may reflect minimal chronic residua. 2. 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 3. Minimal left lower lobe atelectasis and possible minimal infiltrate. 4. Mild fatty infiltration of the liver. 5. Resolution of right obstructive uropathy since the prior study IMPRESSION AND PLAN 1. chronic abdominal pain 2. morbid obesity 3. multiple complex incisional hernia icluding midline hernia and parastomal hernia 4. abdominal wall cellulitis The fluid collection around the colon within the stoma looks actually improved and near resolved compared to the CT abdomen and pelvis done last year (02/02). I do not think that this is infectious in nature. She has this erythema on the abdominal wall that is rapidly expanding by their description which is cellulitic. I do not detect any soft tissue component on CT. Continue with antibiotics. I'm not sure what prompted the skin infection. Not see any skin breakdown. I do not see any fluctuant area. She has a more prominent ecchymotic like, dark red colored patch of erythema at the right paramedian area which the mom points this where it started. The underlying soft tissue itself does not seem to be indurated. On CT I do not see any soft tissue thickening or changes to suggest any abscess or necrotizing infection. She has a long-standing large midline hernia and large parastomal hernia. I have met her in the clinic last year to discuss options. She is morbidly obese with a BMI of 71. She will need a major abdominal wall reconstruction to fix this hernia. But first of all she will need a bariatric procedure to reduce her BMI to be even considered a candidate for an abdominal wall reconstruction. Givenher baseline mentation not sure she would be a candidate for bariatric procedure and parents did not wish for a bariatric procedure for her. Thus burying an emergency procedure, she will not be a candidate for any fix for her complex abdominal wall hernias. Vital Signs Vital Signs Date Time Temp Pulse Resp B/P (MAP) Pulse Ox O2 Delivery O2 Flow Rate FiO2 08/24/19 13:00 98.7 80 20 119/75 (90) 93 Room Air 08/24/19 11:38 2.0 I&Os I&O- Last 24 Hours up to 6 AM 08/25/19 06:00 Intake Total 950 ml Output Total 350 ml Balance 600 ml Laboratory Data Labs 24H Laboratory Tests 2 08/24/19 17:06: Urine Color YELLOW, Urine Appearance HAZY, Urine pH 5.0, Urine Specific [place] >1.060H, Urine Protein NEGATIVE, Urine Glucose (UA) NEGATIVE, Urine Ketones NEGATIVE, Urine Blood NEGATIVE, Urine Nitrite NEGATIVE, Urine Bilirubin NEGATIVE, Urine Urobilinogen 0.2, Urine Leukocyte Esterase NEGATIVE, Urine WBC (Auto) 2, Urine RBC (Auto) 1, Urine Hyaline Casts (Auto) 0, Urine Bacteria (Auto) NEGATIVE, Urine Squamous Epithelial Cells 5, Urine Mucus (Auto) SMALL, Urine Sperm (Auto) Microbiology Microbiology 08/24/19 Blood Culture, Received Pending 08/24/19 Blood Culture - Preliminary, Resulted No growth after 24 hours . All specim... Home Medications Scheduled Ergocalciferol (Vitamin D2) (Vitamin D2) 50,000 Units Cap, 50,000 UNITS PO Q2WK, (Reported) EVERY OTHER SATURDAY Levothyroxine Sodium (Synthroid) 200 Mcg Tablet, 200 MCG PO DAILY, (Reported) Ranitidine HCl (Ranitidine HCl) 150 Mg Tablet, 1 TAB PO QHS, (Reported) Warfarin Sodium (Warfarin Sodium) 5 Mg Tablet, 5 MG PO 6XWK, (Reported) SATURDAY,SATURDAY,SATURDAY,SATURDAY,SATURDAY AND SATURDAY Warfarin Sodium (Warfarin Sodium) 2.5 Mg Tablet, 2.5 MG PO 1XWK, (Reported) SATURDAY Scheduled PRN Acetaminophen (Acetaminophen) 500 Mg Tablet, 500 MG PO Q4H PRN for PAIN OR FEVER, (Reported) Fluticasone Propionate (Flonase Allergy Relief) 9.9 Ml [place].susp, 1 SPRAY NA DAILY PRN for NASAL CONGESTION, (Reported) Nystatin (Nystatin Powder) 15 Gm Powder, 1 DOSE TOP TID PRN for REDNESS/IRRITATION, (Reported) USES UNDER BREASTS AND STOMACH FOLDS Sodium Chloride (Saline Nasal [place]) 44 Ml [place], 1 SPRAY NA QID PRN for NASAL DRYNESS, (Reported) [Pamprin] , 2 TAB PO Q6H PRN for PAIN, (Reported) Allergies Coded Allergies: amoxicillin (Verified Adverse Reaction, Mild, DIARRHEA, 01/06/19) clavulanic acid (Verified Adverse Reaction, Mild, DIARRHEA, 01/06/19) FELIX JULIAN MD Aug 25, 2019 06:21
[2019-08-25 07:02] LABS: BASO # 0.1 10^3/uL (0.0-0.2); BASO % 0.5 % (0.0-1.0); EOS # 0.1 10^3/uL (0.0-0.5); EOS % 0.6 % (0.0-3.0); HEMATOCRIT 37.9 % (36.0-47.0); HEMOGLOBIN 11.8 g/dl (12.0-15.5); LYMPH # 1.6 10^3/uL (1.5-5.0); LYMPH % 12.1 % (24.0-44.0); MEAN CORPUSCULAR HEMOGLOBIN 29.1 pg (27.0-33.0); MEAN CORPUSCULAR HGB CONC 31.1 g/dl (32.0-36.5); MEAN CORPUSCULAR VOLUME 93.3 fl (80.0-96.0); MONO # 0.6 10^3/uL (0.0-0.8); MONO % 4.4 % (0.0-5.0); NEUTROPHILS # 10.4 10^3/uL (1.5-8.5); NEUTROPHILS % 81.7 % (36.0-66.0); PLATELET COUNT, AUTOMATED 224 10^3/uL (150-450); RED BLOOD COUNT 4.06 10^6/uL (4.00-5.40); WHITE BLOOD COUNT 12.8 10^3/uL (4.0-10.0)
[2019-08-25 07:11] LABS: INR 2.29; PROTHROMBIN TIME 25.1 SECONDS (11.8-14.0)
[2019-08-25 07:20] LABS: CALCIUM LEVEL 8.5 MG/DL (8.5-10.1); CREATININE FOR GFR 1.11 MG/DL (0.55-1.30); GLOMERULAR FILTRATION RATE 58.6 (>60); POTASSIUM SERUM 3.8 MEQ/L (3.5-5.1)
[2019-08-25] MEDS: DOCUSATE SODIUM 100 MG CAP PO SCH ×2 (09:00→21:00)
[2019-08-25] MEDS ORDERED: NYSTATIN 100,000 UNITS/GM TOPICAL PWD 15 GM TOP PRN (09:15)
[2019-08-25] MEDS ORDERED: FLUTICASONE PROP 0.05% NASAL SPRAY 16 GM (FLONASE) PRN (10:45)
--- NOTE | 2019-08-25 10:49 | IPNPDOC ---
Text Note Date of Service The patient was seen on 08/25/19. NOTE Subjective: Patient is a 39-year-old female with a PMHx Down Syndrome, Hirschsprung's disease (hx of 13 abdominal surgeries, s/p Colostomy), Raynaud's syndrome, Hx of Multiple DVTs (on Coumadin), Hypothyroidism, DORIS (unable to tolerate CPAP) who presents to the emergency room with complaints of abdominal discomfort associated with warmth, redness and tenderness. In the emergency room, patient had a CT scan suggestive of possible abscess collection. She was evaluated by general surgery who has reviewed the imaging and recommended continued antibiotics without any surgical intervention at this time. Patient was seen and examined at the bedside. Patient reports that her abdominal pain is doing slightly better. Denies any nausea, vomiting. Denies chest pain, shortness of breath has been having output from her ostomy. Patient's mother was present at the bedside. I have addressed all her questions and concerns. Objective: Vitals (See below) General: Lying in bed, no acute distress, comfortable, AAOx3 HEENT: NC, AT CVS: +S1S2 Lungs: Fair air entry b/l, -w/r/r Abdomen: Soft, ND, NT Extremities: - Edema, - Calf tenderness Assessment and plan: Abdominal pain - likely 2/2 abdominal wall cellulitis - Currently, patient reports that the redness has improved. Still reports some comfort and warmth - Leukocytosis improving; no lactic acidosis - MRSA screen pending - CT abdomen / pelvis 08/23: 1. Distal colonic resection with left lower quadrant colostomy with associated ostomy hernia. As the colon extends into the hernia, there is colonic wall thickening with pericolonic induration and influence suggesting inflammatory change or segmental colitis. There is some stranding to a small fluid collection at the posterior aspect of the hernia sac which may reflect small abscess measuring 2.5 x 1.8 x 2.7 cm, however, this is considerably decreased in size since 01/06/2019 may reflect minimal chronic residua. 2. 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 3. Minimal left lower lobe atelectasis and possible minimal infiltrate. 4. Mild fatty infiltration of the liver. 5. Resolut ion of right obstructive uropathy since the prior study - c/w Ceftaroline (Day #2) - General surgery on consultation; appreciate their input Allergic rhinitis - Will resume Flonase Down Syndrome - Patient is a resident of [facility] Hirschsprung's disease - Hx of 13 abdominal surgeries, s/p Colostomy Raynaud's syndrome Hx of Multiple DVTs - INR therapeutic currently - Will resume Coumadin today; no plans for surgery Hypothyroidism - c/w Levothyroxine DORIS - Unable to tolerate CPAP GERD - c/w Famotidine DVT prophylaxis - c/w full anticoagulation with Coumadin Disposition: - Will continue with IV antibiotics for the next 24 hours until symptomatic improvement is noted VS,Fishbone, I+O VS, Fishbone, I+O Laboratory Tests 08/25/19 06:36 Vital Signs Date Time Temp Pulse Resp B/P (MAP) Pulse Ox O2 Delivery O2 Flow Rate FiO2 08/25/19 06:00 97.4 67 19 115/67 (83) 100 Room Air 08/24/19 11:38 2.0 I&O- Last 24 Hours up to 6 AM 08/25/19 05:59 Intake Total 950 ml Output Total 350 ml Balance 600 ml JOSUE MARCH MD Aug 25, 2019 10:49
--- NOTE | 2019-08-25 11:43 | IPNPDOC ---
Text Note Date of Service The patient was seen on 08/25/19. NOTE Patient looks much more comfortable. She sitting up watching her eye pad. She is tolerating diet. She still has some mild low-grade fever early this morning The erythema on the abdominal wall is starting to fade with the right paramedian ecchymotic erythema remaining which I would think that this portion this were the infection started and will take some time to fully resolve. No abscess. Abdominal wall cellulitis Morbid obesity with a BMI of 71 Abdominal wall incisional hernia and parastomal hernia Colostomy status She looks improved. I will leave it up to the medical service to determine her antibiotic course for the abdominal wall cellulitis. She does not need any surgical intervention at this time. Her abdominal wall hernias are stable and not giving her any problems at this time. Her colostomy is working. I will sign off at this time, contact me with any concerns. Thank you very much for the consult. VS,Nunue, I+O VS, Nunue, I+O Laboratory Tests 08/25/19 06:36 Vital Signs Date Time Temp Pulse Resp B/P (MAP) Pulse Ox O2 Delivery O2 Flow Rate FiO2 08/25/19 06:00 97.4 67 19 115/67 (83) 100 Room Air 08/24/19 11:38 2.0 I&O- Last 24 Hours up to 6 AM 08/25/19 06:00 Intake Total 950 ml Output Total 350 ml Balance 600 ml FELIX JULIAN MD Aug 25, 2019 11:43
[2019-08-25 14:00] VITALS: BP 116/68
[2019-08-25] MEDS ORDERED: WARFARIN SOD 5 MG TAB PO SCH (17:00)
[2019-08-25] MEDS ORDERED: FAMOTIDINE 20 MG TAB PO SCH (21:00)
[2019-08-25 22:00] VITALS: BP 102/56
[2019-08-26] MEDS: CEFTAROLINE FOSAMIL 600 MG in D5W MINI-BAG PLUS 50 ML IV SCH (01:55)
[2019-08-26 06:00] VITALS: BP 115/75
[2019-08-26] MEDS: LEVOTHYROXINE 100MCG TABLET (0.1MG) PO SCH (06:12)
[2019-08-26 07:11] LABS: BASO # 0.1 10^3/uL (0.0-0.2); BASO % 0.6 % (0.0-1.0); EOS # 0.1 10^3/uL (0.0-0.5); EOS % 1.6 % (0.0-3.0); HEMATOCRIT 37.6 % (36.0-47.0); HEMOGLOBIN 11.8 g/dl (12.0-15.5); LYMPH # 1.9 10^3/uL (1.5-5.0); LYMPH % 23.2 % (24.0-44.0); MEAN CORPUSCULAR HEMOGLOBIN 29.4 pg (27.0-33.0); MEAN CORPUSCULAR HGB CONC 31.4 g/dl (32.0-36.5); MEAN CORPUSCULAR VOLUME 93.5 fl (80.0-96.0); MONO # 0.5 10^3/uL (0.0-0.8); MONO % 6.2 % (0.0-5.0); NEUTROPHILS # 5.7 10^3/uL (1.5-8.5); NEUTROPHILS % 67.7 % (36.0-66.0); PLATELET COUNT, AUTOMATED 215 10^3/uL (150-450); RED BLOOD COUNT 4.02 10^6/uL (4.00-5.40); WHITE BLOOD COUNT 8.4 10^3/uL (4.0-10.0)
[2019-08-26 07:24] LABS: INR 1.73
[2019-08-26 07:43] LABS: BLOOD UREA NITROGEN 15 MG/DL (7-18); CALCIUM LEVEL 8.5 MG/DL (8.5-10.1); CARBON DIOXIDE LEVEL 25 MEQ/L (21-32); CHLORIDE LEVEL 107 MEQ/L (98-107); CREATININE FOR GFR 0.92 MG/DL (0.55-1.30); GLOMERULAR FILTRATION RATE > 60.0 (>60); GLUCOSE, FASTING 85 MG/DL (70-100); POTASSIUM SERUM 4.3 MEQ/L (3.5-5.1); SODIUM LEVEL 138 MEQ/L (136-145)
[2019-08-26] MEDS: DOCUSATE SODIUM 100 MG CAP PO SCH (09:00)
[2019-08-26] MEDS ORDERED: AUGM875T28 PO (09:50)
--- NOTE | 2019-08-26 10:32 | DS.PDOC ---
Discharge Summary General Date of Admission Aug 24, 2019 at 11:36 Date of Discharge 08/26/2019 Discharge Summary PROCEDURES PERFORMED DURING STAY: [None]. ADMITTING DIAGNOSES / DISCHARGE DIAGNOSES: Abdominal pain - likely 2/2 abdominal wall cellulitis Allergic rhinitis Down Syndrome Hirschsprung's disease Raynaud's syndrome Hx of Multiple DVTs Hypothyroidism DORIS GERD DVT prophylaxis COMPLICATIONS/CHIEF COMPLAINT: Abdominal Pain HISTORY OF PRESENT ILLNESS: Patient is a 39-year-old female with a PMHx Down Syndrome, Hirschsprung's disease (hx of 13 abdominal surgeries, s/p Colostomy), Raynaud's syndrome, Hx of Multiple DVTs (on Coumadin), Hypothyroidism, DORIS (unable to tolerate CPAP) who presents to the emergency room with complaints of abdominal discomfort associated with warmth, redness and tenderness. In the emergency room, patient had a CT scan suggestive of possible abscess collection. She was evaluated by general surgery who has reviewed the imaging and recommended continued antibiotics without any surgical intervention at this time. HOSPITAL COURSE: Abdominal pain - likely 2/2 abdominal wall cellulitis - Significant regression erythema, warmth and tenderness; patient appears to be at her baseline level of functioning as per patient's mother - s/p Leukocytosis; No lactic acidosis - MRSA screen negative - CT abdomen / pelvis 08/23: 1. Distal colonic resection with left lower quadrant colostomy with associated ostomy hernia. As the colon extends into the hernia, there is colonic wall thickening with pericolonic induration and influence suggesting inflammatory change or segmental colitis. There is some stranding to a small fluid collection at the posterior aspect of the hernia sac which may reflect small abscess measuring 2.5 x 1.8 x 2.7 cm, however, this is con siderably decreased in size since 01/06/2019 may reflect minimal chronic residua. 2. 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 3. Minimal left lower lobe atelectasis and possible minimal infiltrate. 4. Mild fatty infiltration of the liver. 5. Resolution of right obstructive uropathy since the prior study - Will start Augmentin; Will DC Ceftaroline (Antibiotic day #3) - Discussed with family about Augmentin adverse reaction - had indicated it caused diarrhea several years ago; advised that she may require a probiotic, but declined one at this time - General surgery on consultation; appreciate their input Allergic rhinitis - c/w Flonase Down Syndrome - Patient is a resident of [facility] Hirschsprung's disease - Hx of 13 abdominal surgeries, s/p Colostomy Raynaud's syndrome Hx of Multiple DVTs - INR sub-therapeutic - Will continue with Coumadin - no plans for surgical intervention Hypothyroidism - c/w Levothyroxine DOIRS - Unable to tolerate CPAP GERD - c/w Famotidine DVT prophylaxis - c/w full anticoagulation with Coumadin DISCHARGE MEDICATIONS: Please see below. ALLERGIES: Please see below. PHYSICAL EXAMINATION ON DISCHARGE: Vitals (See below) General: Lying in bed, no acute distress, comfortable, AAOx3 HEENT: NC, AT CVS: +S1S2 Lungs: Fair air entry b/l, no significant wheezing or rales Abdomen: Soft, no evidence of distention or tenderness Extremities: no evidence of pitting edema, - Calf tenderness Skin: Right lower quadrant with area of erythema, warmth, tenderness significantly regressed from point of admission LABORATORY DATA: Please see below. ACTIVITY: [As tolerated]. DISCHARGE PLAN: Follow-up with Fawn Puente and Dr. Aldrich within 7 days Remain compliant with treatment plan and medications Return to the ER if you experience any problems DISPOSITION: Home DISCHARGE CONDITION: [Stable]. TIME SPENT ON DISCHARGE: 35 minutes Vital Signs/I&Os Vital Signs Date Time Temp Pulse Resp B/P (MAP) Pulse Ox O2 Delivery O2 Flow Rate FiO2 08/26/19 06:00 97.5 60 17 115/75 (88) 98 08/25/19 22:00 Room Air 08/24/19 11:38 2.0 I&O- Last 24 Hours up to 6 AM 08/26/19 05:59 Intake Total 890 ml Output Total 700 ml Balance 190 ml Laboratory Data Labs 24H Laboratory Tests 2 08/26/19 06:49: Immature Granulocyte % (Auto) 0.7, Neutrophils (%) (Auto) 67.7H, Lymphocytes (%) (Auto) 23.2L, Monocytes (%) (Auto) 6.2H, Eosinophils (%) (Auto) 1.6, Basophils (%) (Auto) 0.6, Neutrophils # (Auto) 5.7, Lymphocytes # (Auto) 1.9, Monocytes # (Auto) 0.5, Eosinophils # (Auto) 0.1, Basophils # (Auto) 0.1, Nucleated Red Blood Cells % (auto) 0.0, Prothrombin Time 20.0H, Prothromb Time International Ratio 1.73, Anion Gap 6L, Glomerular Filtration Rate > 60.0, Calcium Level 8.5 CBC/BMP Laboratory Tests 08/26/19 06:49 Microbiology Microbiology 08/24/19 Blood Culture - Preliminary, Resulted No Growth after 48 hours. All Specime... 08/24/19 Blood Culture - Preliminary, Resulted No Growth after 48 hours. All Specime... Discharge Medications Scheduled Amoxicillin/Potassium Clav (Augmentin 875-125 Tablet) 1 Each Tablet, 1 TAB PO BID Ergocalciferol (Vitamin D2) (Vitamin D2) 50,000 Units Cap, 50,000 UNITS PO Q2WK, (Reported) EVERY OTHER SATURDAY Levothyroxine Sodium (Synthroid) 200 Mcg Tablet, 200 MCG PO DAILY, (Reported) Ranitidine HCl (Ranitidine HCl) 150 Mg Tablet, 1 TAB PO QHS, (Reported) Warfarin Sodium (Warfarin Sodium) 5 Mg Tablet, 5 MG PO 6XWK, (Reported) SATURDAY,SATURDAY,SATURDAY,SATURDAY,SATURDAY AND SATURDAY Warfarin Sodium (Warfarin Sodium) 2.5 Mg Tablet, 2.5 MG PO 1XWK, (Reported) SATURDAY Scheduled PRN Acetaminophen (Acetaminophen) 500 Mg Tablet, 500 MG PO Q4H PRN for PAIN OR FEVER, (Reported) Fluticasone Propionate (Flonase Allergy Relief) 9.9 Ml Leonore.susp, 1 SPRAY NA DAILY PRN for NASAL CONGESTION, (Reported) Nystatin (Nystatin Powder) 15 Gm Powder, 1 DOSE TOP TID PRN for REDNESS/IRRITATI ON, (Reported) USES UNDER BREASTS AND STOMACH FOLDS Sodium Chloride (Saline Nasal Leonore) 44 Ml Leonore, 1 SPRAY NA QID PRN for NASAL DRYNESS, (Reported) [Pamprin] , 2 TAB PO Q6H PRN for PAIN, (Reported) Allergies Coded Allergies: amoxicillin (Verified Adverse Reaction, Mild, DIARRHEA, 01/06/19) clavulanic acid (Verified Adverse Reaction, Mild, DIARRHEA, 01/06/19) JOSUE MARCH MD Aug 26, 2019 10:32
[2019-08-27] MEDS ORDERED: WARFARIN SOD 2.5 MG TAB PO SCH (17:00)
== END 2019-08-26 11:47 | disposition home or self-care (01) | DRG 383 ==
LOC: EDBD 23:59 → M ED 23:59 → M ED INP 08-24 11:36 → M MSPAV 08-24 11:36 → ENRESERV 08-24 12:02 → M MSPAV 08-24 13:03
PROVIDERS: ADMIT Family Medicine; ATTEND Internal Medicine
DX: L03.311 Cellulitis of abdominal wall (principal); Q43.1 Hirschsprung's disease; E66.01 Morbid (severe) obesity due to excess calories; Z68.45 Body mass index [BMI] 70 or greater, adult; I73.00 Raynaud's syndrome without gangrene; Q90.9 Down syndrome, unspecified; K21.9 Gastro-esophageal reflux disease without esophagitis; E03.9 Hypothyroidism, unspecified; G47.33 Obstructive sleep apnea (adult) (pediatric); J30.9 Allergic rhinitis, unspecified; E55.9 Vitamin D deficiency, unspecified; K43.5 Parastomal hernia without obstruction or gangrene; Z79.01 Long term (current) use of anticoagulants; Z86.718 Personal history of other venous thrombosis and embolism; Z79.899 Other long term (current) drug therapy; Z88.1 Allergy status to other antibiotic agents

== ENCOUNTER → 2019-10-30 | Outpatient (REF) | payer BC, MEDICAID ==
[~2019-10-30] MED LIST changes: +ACET-683 PO; +AUGM875T28 PO; +VITA50005 PO
== END ==
LOC: M SFHCPLAZ 08:41
PROVIDERS: ATTEND Nurse Practitioner Family
DX: Z53.8 Procedure and treatment not carried out for other reasons (principal); E03.9 Hypothyroidism, unspecified

== ENCOUNTER → 2019-12-23 | Outpatient (REF) | payer BC, MEDICAID ==
[2019-12-23 11:58] LABS: FREE T4 1.29 NG/DL (0.76-1.46); THYROID STIMULATING HORMONE 1.69 uIU/ML (0.358-3.740); TOTAL 25(OH) VITAMIN D 43.6 NG/ML (30.0-100.0)
== END ==
LOC: M SFHCPLAZ 09:08
PROVIDERS: ATTEND Nurse Practitioner Family
DX: Z79.899 Other long term (current) drug therapy (principal); E03.9 Hypothyroidism, unspecified

== ENCOUNTER → 2020-03-31 | Outpatient (REF) | payer BC, MEDICAID ==
[2020-03-31 15:52] LABS: INR 2.89; PROTHROMBIN TIME 30.9 SECONDS (12.5-14.3)
== END ==
LOC: M SFHCPLAZ 14:24
PROVIDERS: ATTEND Nurse Practitioner Family
DX: Z51.81 Encounter for therapeutic drug level monitoring (principal)

== ENCOUNTER → 2020-06-03 | Outpatient (REF) | payer BC, MEDICAID ==
[2020-06-03 13:06] LABS: INR 2.45; PROTHROMBIN TIME 27.1 SECONDS (12.5-14.3)
== END ==
LOC: M SFHCPLAZ 11:10
PROVIDERS: ATTEND Nurse Practitioner Family
DX: Z51.81 Encounter for therapeutic drug level monitoring (principal); Z79.899 Other long term (current) drug therapy

== ENCOUNTER → 2020-09-30 | Outpatient (REF) | payer BC, MEDICAID ==
[2020-09-30 17:33] LABS: HEMATOCRIT 47.6 % (36.0-47.0); HEMOGLOBIN 14.2 g/dl (12.0-15.5); MEAN CORPUSCULAR HEMOGLOBIN 29.6 pg (27.0-33.0); MEAN CORPUSCULAR HGB CONC 29.8 g/dl (32.0-36.5); MEAN CORPUSCULAR VOLUME 99.4 fl (80.0-96.0); PLATELET COUNT, AUTOMATED 314 10^3/uL (150-450); RED BLOOD COUNT 4.79 10^6/uL (4.00-5.40); WHITE BLOOD COUNT 5.7 10^3/uL (4.0-10.0)
[2020-09-30 19:10] LABS: ALBUMIN 3.3 GM/DL (3.2-5.2); ALT/SGPT 37 U/L (12-78); BILIRUBIN,TOTAL 0.5 MG/DL (0.2-1.0); BLOOD UREA NITROGEN 16 MG/DL (7-18); CALCIUM LEVEL 9.1 MG/DL (8.5-10.1); CARBON DIOXIDE LEVEL 25 MEQ/L (21-32); CHLORIDE LEVEL 107 MEQ/L (98-107); CREATININE FOR GFR 0.91 MG/DL (0.55-1.30); FERRITIN 95 NG/ML (8-252); FREE T4 1.26 NG/DL (0.76-1.46); GLOMERULAR FILTRATION RATE > 60.0 (>60); GLUCOSE, FASTING 67 MG/DL (70-100); SODIUM LEVEL 140 MEQ/L (136-145); TOTAL PROTEIN 8.3 GM/DL (6.4-8.2)
== END ==
LOC: M SFHCPLAZ 14:25
PROVIDERS: ATTEND Nurse Practitioner Family
DX: N18.31 Chronic kidney disease, stage 3a (principal); E03.9 Hypothyroidism, unspecified; E55.9 Vitamin D deficiency, unspecified; Z74.09 Other reduced mobility

== ENCOUNTER → 2020-11-23 | Outpatient (REF) | payer BC, MEDICAID | LOC: M SFHCPLAZ 11:48 | PROVIDERS: ATTEND Nurse Practitioner Family | DX: Z28.21 Immunization not carried out because of patient refusal (principal); Z86.16 Personal history of COVID-19 ==

== ENCOUNTER → 2021-01-31 | Outpatient (CLI) | payer BC, MEDICAID ==
[~2021-01-31] MED LIST changes: +ERGO500029 PO; -VITA50005 PO
[2021-01-31 13:58] LABS: ALBUMIN 2.6 GM/DL (3.2-5.2); ALT/SGPT 31 U/L (12-78); BILIRUBIN,TOTAL 0.4 MG/DL (0.2-1.0); BLOOD UREA NITROGEN 13 MG/DL (7-18); CALCIUM LEVEL 7.6 MG/DL (8.5-10.1); CARBON DIOXIDE LEVEL 27 MEQ/L (21-32); CHLORIDE LEVEL 106 MEQ/L (98-107); CREATININE FOR GFR 1.06 MG/DL (0.55-1.30); FREE T4 1.52 NG/DL (0.76-1.46); GLOMERULAR FILTRATION RATE > 60.0 (>60); GLUCOSE, FASTING 86 MG/DL (70-100); SODIUM LEVEL 139 MEQ/L (136-145); TOTAL 25(OH) VITAMIN D 39.6 NG/ML (30.0-100.0); TOTAL PROTEIN 7.2 GM/DL (6.4-8.2)
== END ==
LOC: M PLALAB 09:16
PROVIDERS: ATTEND Nurse Practitioner Family
DX: E55.9 Vitamin D deficiency, unspecified (principal)

== ENCOUNTER → 2021-03-24 | Outpatient (CLI) | payer BC, MEDICAID ==
[2021-03-24 15:53] LABS: ALBUMIN 2.4 GM/DL (3.2-5.2); ALT/SGPT 24 U/L (12-78); BILIRUBIN,TOTAL 0.3 MG/DL (0.2-1.0); BLOOD UREA NITROGEN 20 MG/DL (7-18); CALCIUM LEVEL 8.3 MG/DL (8.5-10.1); CARBON DIOXIDE LEVEL 26 MEQ/L (21-32); CHLORIDE LEVEL 108 MEQ/L (98-107); CREATININE FOR GFR 1.05 MG/DL (0.55-1.30); FREE T4 1.36 NG/DL (0.76-1.46); GLOMERULAR FILTRATION RATE > 60.0 (>58); GLUCOSE, FASTING 79 MG/DL (70-100); POTASSIUM SERUM 3.9 MEQ/L (3.5-5.1); SODIUM LEVEL 139 MEQ/L (136-145); THYROID STIMULATING HORMONE 0.506 uIU/ML (0.358-3.740); TOTAL PROTEIN 7.1 GM/DL (6.4-8.2)
[2021-03-24 15:54] LABS: TOTAL 25(OH) VITAMIN D 52.3 NG/ML (30.0-100.0)
== END ==
LOC: M PLALAB 10:34
PROVIDERS: ATTEND Nurse Practitioner Family
DX: E55.9 Vitamin D deficiency, unspecified (principal)

== ENCOUNTER → 2021-05-04 | Outpatient (REF) | payer BC, MEDICAID ==
[2021-05-04 13:42] LABS: APPEARANCE, URINE HAZY (CLEAR); BACTERIA, URINE AUTO NEGATIVE (NEGATIVE); BILIRUBIN, URINE AUTO NEGATIVE (NEGATIVE); BLOOD, URINE BLOOD NEGATIVE (NEGATIVE); COLOR, URINE YELLOW (YELLOW); GLUCOSE, URINE (UA) AUTO NEGATIVE (NEGATIVE); KETONE, URINE AUTO NEGATIVE (NEGATIVE); LEUKOCYTE ESTERASE, URINE AUTO NEGATIVE (NEGATIVE); MUCUS, URINE SMALL (NEGATIVE); NITRITE, URINE AUTO NEGATIVE (NEGATIVE); PROTEIN, URINE AUTO NEGATIVE (NEGATIVE); RBC, URINE AUTO 0 /HPF (0-3); SPECIFIC GRAVITY URINE AUTO 1.023 (1.002-1.035); SQUAMOUS EPITHELIAL CELL UR AU 5 /HPF (0-6); UROBILINOGEN, URINE AUTO 0.2 mg/dL (0.0-2.0); WBC, URINE AUTO 1 /HPF (0-3)
== END ==
LOC: M SFHCPLAZ 12:55
PROVIDERS: ATTEND Family Medicine
DX: R31.0 Gross hematuria (principal)

== ENCOUNTER → 2021-05-04 | Outpatient (CLI) | payer BC, MEDICAID ==
--- NOTE | 2021-05-04 11:59 | REP ---
INDICATION: MELENA COMPARISON: None. TECHNIQUE: Limited supine views of the abdomen and pelvis. FINDINGS: Bowel gas pattern is nonspecific. No obvious bowel obstruction or perforation. IMPRESSION: Limited examination without obvious evidence for obstruction or perforation. <Electronically signed by Federico Coppola > 05/04/21 [id number]
[2021-05-04 13:26] LABS: BASO # 0.1 10^3/uL (0.0-0.2); BASO % 1.2 % (0.0-1.0); EOS # 0.1 10^3/uL (0.0-0.5); EOS % 1.4 % (0.0-3.0); HEMOGLOBIN 13.7 g/dl (12.0-15.5); LYMPH # 2.3 10^3/uL (1.5-5.0); LYMPH % 38.8 % (24.0-44.0); MEAN CORPUSCULAR HGB CONC 29.8 g/dl (32.0-36.5); MEAN CORPUSCULAR VOLUME 97.5 fl (80.0-96.0); MONO # 0.5 10^3/uL (0.0-0.8); MONO % 7.7 % (2.0-8.0); NEUTROPHILS % 50.6 % (36.0-66.0); PLATELET COUNT, AUTOMATED 258 10^3/uL (150-450); RED BLOOD COUNT 4.72 10^6/uL (4.00-5.40); WHITE BLOOD COUNT 5.9 10^3/uL (4.0-10.0)
[2021-05-04 13:49] LABS: ALBUMIN 2.9 GM/DL (3.2-5.2); BILIRUBIN,TOTAL 0.7 MG/DL (0.2-1.0); CALCIUM LEVEL 8.8 MG/DL (8.5-10.1); CREATININE FOR GFR 1.18 MG/DL (0.55-1.30); POTASSIUM SERUM 4.6 MEQ/L (3.5-5.1); TOTAL PROTEIN 8.3 GM/DL (6.4-8.2)
== END ==
LOC: M PLAIMG 11:21
PROVIDERS: ATTEND Physician Assistant
DX: K92.1 Melena (principal)

== ENCOUNTER 2021-06-28 08:00 | Inpatient (IN) | payer BC, MEDICAID ==
[~2021-06-28] VITALS: Ht 149.9 cm; Wt 142.9 kg
[2021-06-28] MEDS ORDERED: NS 1,000 ML IV SCH ×2 (08:10→08:15)
[2021-06-28] MEDS ORDERED: ONDANSETRON 4MG/2ML VIAL IV ONE (08:15)
[2021-06-28] MEDS: fentaNYL 100 MCG/2 ML INJECTION (J3010) IV PRN ×3 (08:49→12:46)
[2021-06-28 09:16] LABS: BASO # 0.1 10^3/uL (0.0-0.2); BASO % 0.9 % (0.0-1.0); HEMATOCRIT 43.8 % (36.0-47.0); HEMOGLOBIN 14.1 g/dl (12.0-15.5); LYMPH # 1.1 10^3/uL (1.5-5.0); LYMPH % 14.6 % (24.0-44.0); MEAN CORPUSCULAR HEMOGLOBIN 29.4 pg (27.0-33.0); MEAN CORPUSCULAR HGB CONC 32.2 g/dl (32.0-36.5); MEAN CORPUSCULAR VOLUME 91.3 fl (80.0-96.0); MONO # 0.3 10^3/uL (0.0-0.8); MONO % 4.1 % (2.0-8.0); NEUTROPHILS # 6.1 10^3/uL (1.5-8.5); NEUTROPHILS % 79.9 % (36.0-66.0); PLATELET COUNT, AUTOMATED 306 10^3/uL (150-450); WHITE BLOOD COUNT 7.6 10^3/uL (4.0-10.0)
[2021-06-28] MEDS ORDERED: ISOVUE-370 76% 100ML VIAL As Ordered ONE (09:30)
[2021-06-28 09:47] LABS: INR 2.14; PROTHROMBIN TIME 24.3 SECONDS (12.7-14.5)
[2021-06-28 09:50] LABS: HCG, SERUM QUALITATIVE NEGATIVE (NEGATIVE)
[2021-06-28 09:53] LABS: ALBUMIN 2.8 GM/DL (3.2-5.2); ALT/SGPT 23 U/L (12-78); BILIRUBIN,DIRECT 0.1 MG/DL (0.0-0.2); BILIRUBIN,TOTAL 0.7 MG/DL (0.2-1.0); LIPASE 72 U/L (73-393)
[2021-06-28] MEDS ORDERED: CALC600T57 PO (13:24)
[2021-06-28] MEDS ORDERED: HYDR-3363 PO (13:33)
[2021-06-28] MEDS ORDERED: HOME MED LIST COMPLETE! XX SCH (13:35)
[2021-06-28] MEDS ORDERED: SODIUM CHLORIDE NASAL 0.65% SPRAY BTL (OCEAN) PRN (14:00)
[2021-06-28] MEDS ORDERED: hydrOXYzine 25 MG TAB PO PRN (14:00)
[2021-06-28] MEDS ORDERED: FLUTICASONE PROP 0.05% NASAL SPRAY 16 GM (FLONASE) PRN (14:00)
[2021-06-28 14:01] LABS: RSV AMPLIFICATION NEGATIVE (NEGATIVE)
[2021-06-28] MEDS: NS 1,000 ML IV SCH ×2 (14:37→20:38)
[2021-06-28] MEDS: ONDANSETRON 4MG/2ML VIAL IV PRN ×2 (15:41→20:46)
[2021-06-28] MEDS ORDERED: WARFARIN SOD 2.5MG TAB PO SCH (17:00)
[2021-06-28 20:39] VITALS: BP 125/74
[2021-06-28] MEDS: ACETAMINOPHEN 500 MG TAB PO PRN (20:46)
[2021-06-29] MEDS: NS 1,000 ML IV SCH (01:45)
[2021-06-29] MEDS ORDERED: NYSTATIN 100,000 UNITS/GM TOPICAL PWD 15 GM TOP PRN (01:50)
[2021-06-29] MEDS: ACETAMINOPHEN 500 MG TAB PO PRN ×2 (03:46→09:07)
[2021-06-29 05:41] VITALS: BP 101/55
[2021-06-29] MEDS ORDERED: LEVOTHYROXINE 100MCG TABLET (0.1MG) PO SCH (06:00)
[2021-06-29 06:42] LABS: HEMATOCRIT 39.2 % (36.0-47.0); HEMOGLOBIN 12.2 g/dl (12.0-15.5); MEAN CORPUSCULAR HEMOGLOBIN 29.1 pg (27.0-33.0); MEAN CORPUSCULAR HGB CONC 31.1 g/dl (32.0-36.5); MEAN CORPUSCULAR VOLUME 93.6 fl (80.0-96.0); PLATELET COUNT, AUTOMATED 273 10^3/uL (150-450); RED BLOOD COUNT 4.19 10^6/uL (4.00-5.40); WHITE BLOOD COUNT 6.8 10^3/uL (4.0-10.0)
[2021-06-29 06:54] LABS: INR 2.72; PROTHROMBIN TIME 29.2 SECONDS (12.7-14.5)
[2021-06-29 06:55] LABS: PARTIAL THROMBOPLASTIN TIME 65.9 SECONDS (25.9-37.0)
[2021-06-29 07:02] LABS: ALBUMIN 2.4 GM/DL (3.2-5.2); ALT/SGPT 17 U/L (12-78); BILIRUBIN,TOTAL 0.5 MG/DL (0.2-1.0); BLOOD UREA NITROGEN 10 MG/DL (7-18); CALCIUM LEVEL 7.7 MG/DL (8.5-10.1); CARBON DIOXIDE LEVEL 22 MEQ/L (21-32); CHLORIDE LEVEL 108 MEQ/L (98-107); CREATININE FOR GFR 0.95 MG/DL (0.55-1.30); GLOMERULAR FILTRATION RATE > 60.0 (>58); GLUCOSE, FASTING 83 MG/DL (70-100); POTASSIUM SERUM 3.8 MEQ/L (3.5-5.1); SODIUM LEVEL 140 MEQ/L (136-145); TOTAL PROTEIN 6.8 GM/DL (6.4-8.2)
[2021-06-29] MEDS ORDERED: OMEPRAZOLE 20 MG CAP PO SCH (09:00)
[2021-06-29] MEDS ORDERED: WARFARIN SOD 5MG TAB PO SCH (17:00)
== END 2021-06-29 11:45 | disposition home or self-care (01) | DRG 248 ==
LOC: EDBD 08:00 → M ED 08:00 → M ED INP 12:35 → ENRESERV 14:30 → M MSPAV 15:55
PROVIDERS: ADMIT Internal Medicine; ATTEND Internal Medicine
DX: A04.6 Enteritis due to Yersinia enterocolitica (principal); Q43.1 Hirschsprung's disease; E89.0 Postprocedural hypothyroidism; I73.00 Raynaud's syndrome without gangrene; G47.33 Obstructive sleep apnea (adult) (pediatric); E55.9 Vitamin D deficiency, unspecified; Q90.9 Down syndrome, unspecified; Z86.718 Personal history of other venous thrombosis and embolism; Z93.3 Colostomy status; Z79.01 Long term (current) use of anticoagulants; Z79.899 Other long term (current) drug therapy; Z88.0 Allergy status to penicillin; Z88.8 Allergy status to other drugs, medicaments and biological substances

== ENCOUNTER → 2021-08-02 | Outpatient (CLI) | payer BC, MEDICAID ==
[~2021-08-02] MED LIST changes: +CALC600T57 PO; +HYDR-3363 PO
[2021-08-02 13:38] LABS: BASO # 0.1 10^3/uL (0.0-0.2); BASO % 1.3 % (0.0-1.0); EOS # 0.1 10^3/uL (0.0-0.5); EOS % 1.1 % (0.0-3.0); HEMATOCRIT 47.1 % (36.0-47.0); LYMPH # 2.1 10^3/uL (1.5-5.0); LYMPH % 39.4 % (24.0-44.0); MEAN CORPUSCULAR HEMOGLOBIN 29.5 pg (27.0-33.0); MEAN CORPUSCULAR HGB CONC 29.7 g/dl (32.0-36.5); MEAN CORPUSCULAR VOLUME 99.2 fl (80.0-96.0); MONO # 0.3 10^3/uL (0.0-0.8); MONO % 6.5 % (2.0-8.0); NEUTROPHILS # 2.7 10^3/uL (1.5-8.5); NEUTROPHILS % 51.1 % (36.0-66.0); RED BLOOD COUNT 4.75 10^6/uL (4.00-5.40); WHITE BLOOD COUNT 5.2 10^3/uL (4.0-10.0)
[2021-08-02 13:57] LABS: INR 1.56; PROTHROMBIN TIME 19.1 SECONDS (12.7-14.5)
[2021-08-02 14:16] LABS: ALBUMIN 2.8 GM/DL (3.2-5.2); ALT/SGPT 22 U/L (12-78); BILIRUBIN,TOTAL 0.4 MG/DL (0.2-1.0); BLOOD UREA NITROGEN 14 MG/DL (7-18); CALCIUM LEVEL 8.7 MG/DL (8.5-10.1); CARBON DIOXIDE LEVEL 27 MEQ/L (21-32); CHLORIDE LEVEL 105 MEQ/L (98-107); GLOMERULAR FILTRATION RATE > 60.0 (>58); GLUCOSE, FASTING 79 MG/DL (70-100); POTASSIUM SERUM 4.9 MEQ/L (3.5-5.1); SODIUM LEVEL 138 MEQ/L (136-145); TOTAL PROTEIN 7.7 GM/DL (6.4-8.2)
== END ==
LOC: M LAB 12:17
PROVIDERS: ATTEND Physician Assistant Medical
DX: Z79.01 Long term (current) use of anticoagulants (principal)

== ENCOUNTER → 2021-10-18 | Outpatient (CLI) | payer BC, MEDICAID ==
[2021-10-18 13:43] LABS: BASO # 0.1 10^3/uL (0.0-0.2); EOS # 0.1 10^3/uL (0.0-0.5); HEMATOCRIT 44.4 % (36.0-47.0); HEMOGLOBIN 13.6 g/dl (12.0-15.5); LYMPH # 2.7 10^3/uL (1.5-5.0); LYMPH % 37.9 % (24.0-44.0); MEAN CORPUSCULAR HGB CONC 30.6 g/dl (32.0-36.5); MEAN CORPUSCULAR VOLUME 97.8 fl (80.0-96.0); MONO # 0.5 10^3/uL (0.0-0.8); MONO % 6.5 % (2.0-8.0); NEUTROPHILS # 3.8 10^3/uL (1.5-8.5); PLATELET COUNT, AUTOMATED 246 10^3/uL (150-450); RED BLOOD COUNT 4.54 10^6/uL (4.00-5.40); WHITE BLOOD COUNT 7.2 10^3/uL (4.0-10.0)
[2021-10-18 14:04] LABS: ALT/SGPT 22 U/L (12-78); BILIRUBIN,TOTAL 0.5 MG/DL (0.2-1.0); BLOOD UREA NITROGEN 21 MG/DL (7-18); CALCIUM LEVEL 9.4 MG/DL (8.5-10.1); CARBON DIOXIDE LEVEL 25 MEQ/L (21-32); CHLORIDE LEVEL 106 MEQ/L (98-107); CHOLESTEROL LEVEL 188 MG/DL (<200); CHOLESTEROL RISK RATIO 3.032 (<5); CREATININE FOR GFR 1.03 MG/DL (0.55-1.30); FREE T4 1.21 NG/DL (0.76-1.46); GLOMERULAR FILTRATION RATE > 60.0 (>58); GLUCOSE, FASTING 87 MG/DL (70-100); HDL CHOLESTEROL 62 MG/DL (>40); LDL CHOLESTEROL 105 MG/DL (<100); NON-HDL-C 126 MG/DL; POTASSIUM SERUM 4.6 MEQ/L (3.5-5.1); SODIUM LEVEL 139 MEQ/L (136-145); THYROID STIMULATING HORMONE 0.982 uIU/ML (0.358-3.740); TOTAL PROTEIN 8.1 GM/DL (6.4-8.2); TRIGLYCERIDES LEVEL 107 MG/DL (<150)
[2021-10-18 20:15] LABS: TOTAL 25(OH) VITAMIN D 53.7 NG/ML (30.0-100.0)
[2021-10-18 21:48] LABS: HEMOGLOBIN A1c 5.2 %
== END ==
LOC: M PLALAB 09:57
PROVIDERS: ATTEND Physician Assistant
DX: D50.9 Iron deficiency anemia, unspecified (principal)

== ENCOUNTER → 2022-08-21 | Outpatient (CLI) | payer MEDICAID | LOC: M LAB 13:07 | PROVIDERS: ATTEND Internal Medicine Hematology | DX: Z86.718 Personal history of other venous thrombosis and embolism (principal) ==

== ENCOUNTER 2022-09-10 10:39 | Inpatient (IN) | payer MEDICAID ==
[~2022-09-10] VITALS: Ht 147.3 cm; Wt 148.6 kg
[2022-09-10 11:10] LABS: VENOUS BASE EXCESS -0.8 (-2.0-2.0); VENOUS HCO3 24.8 MEQ/L (23.0-27.0); VENOUS O2 SATURATION 90.3 % (60.0-80.0); VENOUS PARTIAL PRESSURE CO2 44.3 mmHg (38.0-50.0); VENOUS PARTIAL PRESSURE O2 61.4 mmHg (30.0-50.0); VENOUS PH 7.366 UNITS (7.330-7.430); VENOUS STANDARD HCO3 23.7 MEQ/L; VENOUS TOTAL CO2 26.2 MEQ/L (24.0-28.0)
[2022-09-10 11:20] LABS: BASO % 0.2 % (0.0-1.0); EOS % 0.3 % (0.0-3.0); HEMATOCRIT 43.6 % (36.0-47.0); HEMOGLOBIN 13.4 g/dl (12.0-15.5); LYMPH # 1.3 10^3/uL (1.5-5.0); LYMPH % 8.2 % (24.0-44.0); MEAN CORPUSCULAR HEMOGLOBIN 29.5 pg (27.0-33.0); MEAN CORPUSCULAR HGB CONC 30.7 g/dl (32.0-36.5); MEAN CORPUSCULAR VOLUME 95.8 fl (80.0-96.0); MONO # 0.4 10^3/uL (0.0-0.8); MONO % 2.8 % (2.0-8.0); NEUTROPHILS # 13.5 10^3/uL (1.5-8.5); NEUTROPHILS % 87.8 % (36.0-66.0); PLATELET COUNT, AUTOMATED 269 10^3/uL (150-450); RED BLOOD COUNT 4.55 10^6/uL (4.00-5.40); WHITE BLOOD COUNT 15.3 10^3/uL (4.0-10.0)
[2022-09-10 11:40] LABS: INR 1.35; PROTHROMBIN TIME 16.9 SECONDS (12.5-14.5)
[2022-09-10 11:47] LABS: ALBUMIN 2.7 G/DL (3.2-5.2); ALKALINE PHOSPHATASE 80 U/L (46-116); ALT/SGPT 17 U/L (7.0-40); AST/SGOT 27 U/L (<34); BILIRUBIN,DIRECT 0.2 MG/DL (<0.4); BILIRUBIN,TOTAL 0.8 MG/DL (0.3-1.2); BLOOD UREA NITROGEN 18 MG/DL (9-23); CALCIUM LEVEL 8.3 MG/DL (8.5-10.1); CARBON DIOXIDE LEVEL 24 MMOL/L (20-31); CHLORIDE LEVEL 105 MMOL/L (98-107); CK-MB VALUE MASS < 1.0 NG/ML (<3.6); CREATININE FOR GFR 1.06 MG/DL (0.55-1.30); GLOMERULAR FILTRATION RATE > 60.0 (>58); GLUCOSE, FASTING 86 MG/DL (60-100); POTASSIUM SERUM 4.3 MMOL/L (3.5-5.1); SODIUM LEVEL 138 MMOL/L (136-145); THYROID STIMULATING HORMONE 2.059 uIU/ML (0.55-4.78); TOTAL PROTEIN 7.2 G/DL (5.7-8.2)
[2022-09-10 12:03] LABS: CPK CREATINE PHOSPHOKINASE 37 U/L (34-145)
[2022-09-10] MEDS ORDERED: KETOROLAC 30 MG/ML 1ML VIAL IV ONE (12:20)
[2022-09-10] MEDS ORDERED: VANCOMYCIN HCL 2,000 MG in D5W 500 ML IV ONE (14:35)
[2022-09-10] MEDS ORDERED: VANCOMYCIN HCL 1,000 MG, VIAL MATE ADAPTER 1 EACH in NS 250 ML IV ONE ×6 (15:00)
[2022-09-10] MEDS ORDERED: ACETAMINOPHEN 500 MG TAB PO ONE (15:35)
[2022-09-10] MEDS ORDERED: VANCOMYCIN HCL 1,000 MG, VIAL MATE ADAPTER 1 EACH in NS 250 ML IV SCH (17:00)
[2022-09-10] MEDS: NS 1,000 ML IV SCH (18:17)
[2022-09-10 23:02] VITALS: BP 106/66
[2022-09-10 23:45] LABS: RSV AMPLIFICATION NEGATIVE (NEGATIVE)
[2022-09-11] MEDS ORDERED: VANCOMYCIN HCL 1,000 MG, VIAL MATE ADAPTER 1 EACH in D5W 250 ML IV SCH ×3
[2022-09-11] MEDS ORDERED: ALLE1TAB23 PO (02:03)
[2022-09-11] MEDS ORDERED: DOCU100C16 PO (02:03)
[2022-09-11] MEDS ORDERED: NYST1POW9 TOP (02:03)
[2022-09-11] MEDS ORDERED: OMEP-173 PO (02:03)
[2022-09-11] MEDS ORDERED: ELIQ5TAB PO (02:03)
[2022-09-11] MEDS ORDERED: FAMO40TA3 PO (02:03)
[2022-09-11] MEDS ORDERED: HOME MED LIST COMPLETE! XX SCH (02:05)
[2022-09-11] MEDS: ACETAMINOPHEN TAB 650MG DOSE (2X325MG) PO PRN ×3 (04:58→21:01)
[2022-09-11] MEDS: NYSTATIN 100,000 UNITS/GM TOPICAL PWD 15GM TOP SCH ×3 (05:29→20:50)
[2022-09-11 05:33] VITALS: BP 106/67
[2022-09-11] MEDS: LEVOTHYROXINE 100MCG TABLET (0.1MG) PO SCH (06:00)
[2022-09-11 06:07] LABS: HEMATOCRIT 40.3 % (36.0-47.0); HEMOGLOBIN 12.7 g/dl (12.0-15.5); MEAN CORPUSCULAR HEMOGLOBIN 29.7 pg (27.0-33.0); MEAN CORPUSCULAR HGB CONC 31.5 g/dl (32.0-36.5); MEAN CORPUSCULAR VOLUME 94.4 fl (80.0-96.0); PLATELET COUNT, AUTOMATED 229 10^3/uL (150-450); RED BLOOD COUNT 4.27 10^6/uL (4.00-5.40); WHITE BLOOD COUNT 21.2 10^3/uL (4.0-10.0)
[2022-09-11 06:34] LABS: ALBUMIN 2.3 G/DL (3.2-5.2); BILIRUBIN,TOTAL 1.3 MG/DL (0.3-1.2); CALCIUM LEVEL 7.5 MG/DL (8.5-10.1); CREATININE FOR GFR 2.43 MG/DL (0.55-1.30); GLOMERULAR FILTRATION RATE 23.3 (>58); POTASSIUM SERUM 4.2 MMOL/L (3.5-5.1); TOTAL PROTEIN 6.4 G/DL (5.7-8.2)
[2022-09-11] MEDS: NS 1,000 ML IV SCH ×4 (07:45→20:50)
[2022-09-11] MEDS ORDERED: FLUTICASONE PROP 0.05% NASAL SPRAY 16 GM (FLONASE) PRN (07:45)
[2022-09-11] MEDS ORDERED: SODIUM CHLORIDE NASAL 0.65% SPRAY BTL (OCEAN) PRN (07:45)
[2022-09-11] MEDS: OMEPRAZOLE 20MG CAP PO SCH (08:30)
[2022-09-11] MEDS: APIXABAN 5 MG TAB (ELIQUIS) PO SCH ×2 (08:30→20:50)
[2022-09-11 13:42] LABS: BASO # 0.1 10^3/uL (0.0-0.2); BASO % 0.4 % (0.0-1.0); EOS # 0.2 10^3/uL (0.0-0.5); HEMATOCRIT 41.5 % (36.0-47.0); HEMOGLOBIN 13.2 g/dl (12.0-15.5); LYMPH # 1.6 10^3/uL (1.5-5.0); LYMPH % 9.2 % (24.0-44.0); MEAN CORPUSCULAR HEMOGLOBIN 30.3 pg (27.0-33.0); MEAN CORPUSCULAR HGB CONC 31.8 g/dl (32.0-36.5); MEAN CORPUSCULAR VOLUME 95.2 fl (80.0-96.0); MONO # 0.7 10^3/uL (0.0-0.8); MONO % 3.9 % (2.0-8.0); NEUTROPHILS # 15.1 10^3/uL (1.5-8.5); PLATELET COUNT, AUTOMATED 235 10^3/uL (150-450); RED BLOOD COUNT 4.36 10^6/uL (4.00-5.40); WHITE BLOOD COUNT 17.7 10^3/uL (4.0-10.0)
[2022-09-11 13:52] LABS: ERYTHROCYTE SEDIMENTATION RATE 115 mm/hr (0-20)
[2022-09-11 14:00] VITALS: BP 106/63
[2022-09-11 14:19] LABS: CALCIUM LEVEL 8.1 MG/DL (8.5-10.1); CREATININE FOR GFR 2.91 MG/DL (0.55-1.30); POTASSIUM SERUM 4.4 MMOL/L (3.5-5.1)
[2022-09-11 14:21] LABS: C REACTIVE PROTEIN QUANTITATIV 24.1 MG/DL (<1.0)
[2022-09-11] MEDS ORDERED: NS 500 ML IV ONE (14:55)
[2022-09-11] MEDS: DOCUSATE SODIUM 100MG CAPSULE PO SCH (20:50)
[2022-09-11] MEDS ORDERED: FAMOTIDINE 20 MG TAB PO SCH (21:00)
[2022-09-11 23:19] VITALS: BP 104/62
[2022-09-12] MEDS: NS 1,000 ML IV SCH ×5 (01:50→23:59)
[2022-09-12] MEDS: ACETAMINOPHEN TAB 650MG DOSE (2X325MG) PO PRN ×3 (03:12→16:30)
[2022-09-12] MEDS: LEVOTHYROXINE 100MCG TABLET (0.1MG) PO SCH (05:55)
[2022-09-12 06:59] VITALS: BP 110/95
[2022-09-12 07:21] LABS: BASO # 0.1 10^3/uL (0.0-0.2); BASO % 0.4 % (0.0-1.0); EOS # 0.2 10^3/uL (0.0-0.5); EOS % 1.9 % (0.0-3.0); HEMATOCRIT 39.1 % (36.0-47.0); HEMOGLOBIN 11.9 g/dl (12.0-15.5); LYMPH # 1.4 10^3/uL (1.5-5.0); LYMPH % 11.7 % (24.0-44.0); MEAN CORPUSCULAR HEMOGLOBIN 29.6 pg (27.0-33.0); MEAN CORPUSCULAR HGB CONC 30.4 g/dl (32.0-36.5); MEAN CORPUSCULAR VOLUME 97.3 fl (80.0-96.0); MONO # 0.5 10^3/uL (0.0-0.8); MONO % 4.5 % (2.0-8.0); NEUTROPHILS # 9.6 10^3/uL (1.5-8.5); NEUTROPHILS % 80.9 % (36.0-66.0); PLATELET COUNT, AUTOMATED 211 10^3/uL (150-450); RED BLOOD COUNT 4.02 10^6/uL (4.00-5.40); WHITE BLOOD COUNT 11.9 10^3/uL (4.0-10.0)
[2022-09-12 07:58] LABS: VANCOMYCIN RANDOM 26.8 UG/ML
[2022-09-12 08:59] LABS: ALBUMIN 2.2 G/DL (3.2-5.2); BILIRUBIN,TOTAL 0.5 MG/DL (0.3-1.2); CALCIUM LEVEL 7.7 MG/DL (8.5-10.1); CREATININE FOR GFR 3.25 MG/DL (0.55-1.30); GLOMERULAR FILTRATION RATE 16.7 (>58); POTASSIUM SERUM 4.7 MMOL/L (3.5-5.1); TOTAL PROTEIN 6.4 G/DL (5.7-8.2)
[2022-09-12 09:37] LABS: MAGNESIUM LEVEL 1.7 MG/DL (1.8-2.4)
[2022-09-12] MEDS ORDERED: MAGNESIUM OXIDE 400MG TAB (MAG-OX) PO ONE (09:40)
[2022-09-12] MEDS: OMEPRAZOLE 20MG CAP PO SCH (09:54)
[2022-09-12] MEDS: NYSTATIN 100,000 UNITS/GM TOPICAL PWD 15GM TOP SCH ×2 (09:55→20:55)
[2022-09-12] MEDS: APIXABAN 5 MG TAB (ELIQUIS) PO SCH ×2 (09:55→20:55)
[2022-09-12 13:37] VITALS: BP 100/62
[2022-09-12] MEDS: DOCUSATE SODIUM 100MG CAPSULE PO SCH (20:55)
[2022-09-12] MEDS: FAMOTIDINE 20 MG TAB PO SCH (20:55)
[2022-09-12 21:01] VITALS: BP 101/67
[2022-09-13] MEDS: ACETAMINOPHEN TAB 650MG DOSE (2X325MG) PO PRN ×3 (02:02→17:41)
[2022-09-13] MEDS: LEVOTHYROXINE 100MCG TABLET (0.1MG) PO SCH (05:05)
[2022-09-13 05:12] VITALS: BP 104/66
[2022-09-13 05:54] LABS: BASO # 0.1 10^3/uL (0.0-0.2); BASO % 0.6 % (0.0-1.0); EOS # 0.3 10^3/uL (0.0-0.5); EOS % 2.6 % (0.0-3.0); HEMATOCRIT 35.3 % (36.0-47.0); HEMOGLOBIN 10.9 g/dl (12.0-15.5); LYMPH # 2.1 10^3/uL (1.5-5.0); LYMPH % 18.8 % (24.0-44.0); MEAN CORPUSCULAR HEMOGLOBIN 29.7 pg (27.0-33.0); MEAN CORPUSCULAR HGB CONC 30.9 g/dl (32.0-36.5); MEAN CORPUSCULAR VOLUME 96.2 fl (80.0-96.0); MONO # 0.6 10^3/uL (0.0-0.8); NEUTROPHILS # 7.9 10^3/uL (1.5-8.5); NEUTROPHILS % 72.3 % (36.0-66.0); PLATELET COUNT, AUTOMATED 240 10^3/uL (150-450); RED BLOOD COUNT 3.67 10^6/uL (4.00-5.40)
[2022-09-13 06:26] LABS: VANCOMYCIN RANDOM 19.3 UG/ML
[2022-09-13 06:35] LABS: ALBUMIN 1.9 G/DL (3.2-5.2); BILIRUBIN,TOTAL 0.4 MG/DL (0.3-1.2); CALCIUM LEVEL 7.1 MG/DL (8.5-10.1); CREATININE FOR GFR 3.6 MG/DL (0.55-1.30); GLOMERULAR FILTRATION RATE 14.8 (>58); MAGNESIUM LEVEL 1.7 MG/DL (1.8-2.4); POTASSIUM SERUM 4.6 MMOL/L (3.5-5.1); TOTAL PROTEIN 5.8 G/DL (5.7-8.2)
[2022-09-13] MEDS ORDERED: MAGNESIUM OXIDE 400MG TAB (MAG-OX) PO ONE (07:35)
[2022-09-13] MEDS: OMEPRAZOLE 20MG CAP PO SCH (09:19)
[2022-09-13] MEDS: APIXABAN 5 MG TAB (ELIQUIS) PO SCH ×2 (09:19→20:32)
[2022-09-13] MEDS: NYSTATIN 100,000 UNITS/GM TOPICAL PWD 15GM TOP SCH ×2 (09:20→20:32)
[2022-09-13 14:21] VITALS: BP 107/65
[2022-09-13] MEDS: NS 1,000 ML IV SCH ×2 (15:14→20:32)
[2022-09-13] MEDS: DOCUSATE SODIUM 100MG CAPSULE PO SCH (20:32)
[2022-09-13] MEDS: FAMOTIDINE 20 MG TAB PO SCH (20:32)
[2022-09-14] MEDS: ACETAMINOPHEN TAB 650MG DOSE (2X325MG) PO PRN ×2 (01:04→12:16)
[2022-09-14] MEDS: LEVOTHYROXINE 100MCG TABLET (0.1MG) PO SCH (06:31)
[2022-09-14 06:35] VITALS: BP 125/81
[2022-09-14 06:58] LABS: BASO # 0.1 10^3/uL (0.0-0.2); BASO % 1.3 % (0.0-1.0); EOS # 0.3 10^3/uL (0.0-0.5); EOS % 3.7 % (0.0-3.0); HEMATOCRIT 38.1 % (36.0-47.0); HEMOGLOBIN 11.7 g/dl (12.0-15.5); LYMPH % 25.6 % (24.0-44.0); MEAN CORPUSCULAR HEMOGLOBIN 29.8 pg (27.0-33.0); MEAN CORPUSCULAR HGB CONC 30.7 g/dl (32.0-36.5); MEAN CORPUSCULAR VOLUME 96.9 fl (80.0-96.0); MONO # 0.5 10^3/uL (0.0-0.8); MONO % 6.4 % (2.0-8.0); NEUTROPHILS % 62.5 % (36.0-66.0); PLATELET COUNT, AUTOMATED 268 10^3/uL (150-450); RED BLOOD COUNT 3.93 10^6/uL (4.00-5.40); WHITE BLOOD COUNT 7.9 10^3/uL (4.0-10.0)
[2022-09-14 07:22] LABS: VANCOMYCIN RANDOM 14.2 UG/ML
[2022-09-14 07:23] LABS: BILIRUBIN,TOTAL 0.4 MG/DL (0.3-1.2); CALCIUM LEVEL 7.5 MG/DL (8.5-10.1); CREATININE FOR GFR 3.66 MG/DL (0.55-1.30); GLOMERULAR FILTRATION RATE 14.6 (>58); MAGNESIUM LEVEL 1.7 MG/DL (1.8-2.4)
[2022-09-14] MEDS ORDERED: MAGNESIUM OXIDE 400MG TAB (MAG-OX) PO ONE (08:00)
[2022-09-14] MEDS: OMEPRAZOLE 20MG CAP PO SCH (08:22)
[2022-09-14] MEDS: APIXABAN 5 MG TAB (ELIQUIS) PO SCH ×2 (08:22→21:04)
[2022-09-14] MEDS: NYSTATIN 100,000 UNITS/GM TOPICAL PWD 15GM TOP SCH ×2 (08:23→21:05)
[2022-09-14] MEDS: NS 1,000 ML IV SCH (11:17)
[2022-09-14 14:00] VITALS: BP 116/82
[2022-09-14] MEDS: CEPHALEXIN 500 MG CAP PO SCH (21:04)
[2022-09-14] MEDS: DOCUSATE SODIUM 100MG CAPSULE PO SCH (21:04)
[2022-09-14] MEDS: FAMOTIDINE 20 MG TAB PO SCH (21:04)
[2022-09-14 21:23] VITALS: BP 117/77
[2022-09-15] MEDS: ACETAMINOPHEN TAB 650MG DOSE (2X325MG) PO PRN ×2 (01:17→13:00)
[2022-09-15] MEDS: NS 1,000 ML IV SCH ×2 (01:18→15:47)
[2022-09-15] MEDS: LEVOTHYROXINE 100MCG TABLET (0.1MG) PO SCH (05:26)
[2022-09-15 06:00] VITALS: BP 99/53
[2022-09-15 06:46] LABS: BASO # 0.1 10^3/uL (0.0-0.2); BASO % 1.4 % (0.0-1.0); EOS # 0.3 10^3/uL (0.0-0.5); EOS % 4.4 % (0.0-3.0); HEMATOCRIT 34.7 % (36.0-47.0); HEMOGLOBIN 10.9 g/dl (12.0-15.5); LYMPH # 2.2 10^3/uL (1.5-5.0); LYMPH % 34.4 % (24.0-44.0); MEAN CORPUSCULAR HGB CONC 31.4 g/dl (32.0-36.5); MEAN CORPUSCULAR VOLUME 95.6 fl (80.0-96.0); MONO # 0.5 10^3/uL (0.0-0.8); MONO % 8.4 % (2.0-8.0); NEUTROPHILS # 3.2 10^3/uL (1.5-8.5); NEUTROPHILS % 50.6 % (36.0-66.0); PLATELET COUNT, AUTOMATED 265 10^3/uL (150-450); RED BLOOD COUNT 3.63 10^6/uL (4.00-5.40); WHITE BLOOD COUNT 6.3 10^3/uL (4.0-10.0)
[2022-09-15 07:24] LABS: ALBUMIN 1.8 G/DL (3.2-5.2); BILIRUBIN,TOTAL 0.4 MG/DL (0.3-1.2); CALCIUM LEVEL 7.3 MG/DL (8.5-10.1); CREATININE FOR GFR 3.8 MG/DL (0.55-1.30); GLOMERULAR FILTRATION RATE 13.9 (>58); MAGNESIUM LEVEL 1.6 MG/DL (1.8-2.4); POTASSIUM SERUM 5.1 MMOL/L (3.5-5.1); TOTAL PROTEIN 5.7 G/DL (5.7-8.2)
[2022-09-15] MEDS: OMEPRAZOLE 20MG CAP PO SCH (10:54)
[2022-09-15] MEDS: NYSTATIN 100,000 UNITS/GM TOPICAL PWD 15GM TOP SCH ×2 (10:55→20:42)
[2022-09-15] MEDS: CEPHALEXIN 500 MG CAP PO SCH ×2 (10:55→20:42)
[2022-09-15] MEDS: APIXABAN 5 MG TAB (ELIQUIS) PO SCH ×2 (10:55→20:41)
[2022-09-15] MEDS ORDERED: PATIROMER SORBITEX CALCIUM 8.4 GM POWDER PACKET (VELTASSA) PO ONE (13:30)
[2022-09-15 14:00] VITALS: BP 119/70
[2022-09-15] MEDS ORDERED: RAMELTEON 8 MG TAB (ROZEREM) PO PRN (15:25)
[2022-09-15] MEDS: FAMOTIDINE 20 MG TAB PO SCH (20:42)
[2022-09-15] MEDS: DOCUSATE SODIUM 100MG CAPSULE PO SCH (20:42)
[2022-09-15 21:14] VITALS: BP 117/69
[2022-09-16 01:30] VITALS: BP 121/70
[2022-09-16] MEDS: ACETAMINOPHEN TAB 650MG DOSE (2X325MG) PO PRN ×2 (01:37→10:07)
[2022-09-16] MEDS ORDERED: GI COCKTAIL 50ML BTL(HYOSCYAMINE/MAALOX/LIDOCAINE VISCOUS)(1:3:1) PO ONE (03:00)
[2022-09-16] MEDS: NS 1,000 ML IV SCH (05:21)
[2022-09-16] MEDS: LEVOTHYROXINE 100MCG TABLET (0.1MG) PO SCH (05:21)
[2022-09-16 06:00] VITALS: BP 121/67
[2022-09-16 06:40] LABS: BASO # 0.1 10^3/uL (0.0-0.2); BASO % 1.6 % (0.0-1.0); EOS # 0.3 10^3/uL (0.0-0.5); EOS % 4.1 % (0.0-3.0); HEMATOCRIT 34.2 % (36.0-47.0); HEMOGLOBIN 10.3 g/dl (12.0-15.5); LYMPH # 2.5 10^3/uL (1.5-5.0); LYMPH % 39.8 % (24.0-44.0); MEAN CORPUSCULAR HEMOGLOBIN 29.3 pg (27.0-33.0); MEAN CORPUSCULAR HGB CONC 30.1 g/dl (32.0-36.5); MEAN CORPUSCULAR VOLUME 97.2 fl (80.0-96.0); MONO # 0.5 10^3/uL (0.0-0.8); MONO % 8.3 % (2.0-8.0); NEUTROPHILS # 2.8 10^3/uL (1.5-8.5); NEUTROPHILS % 44.8 % (36.0-66.0); PLATELET COUNT, AUTOMATED 270 10^3/uL (150-450); RED BLOOD COUNT 3.52 10^6/uL (4.00-5.40); WHITE BLOOD COUNT 6.3 10^3/uL (4.0-10.0)
[2022-09-16 07:12] LABS: ALBUMIN 1.9 G/DL (3.2-5.2); BILIRUBIN,TOTAL 0.3 MG/DL (0.3-1.2); CALCIUM LEVEL 7.8 MG/DL (8.5-10.1); CREATININE FOR GFR 3.66 MG/DL (0.55-1.30); GLOMERULAR FILTRATION RATE 14.6 (>58); MAGNESIUM LEVEL 1.7 MG/DL (1.8-2.4); POTASSIUM SERUM 5.4 MMOL/L (3.5-5.1); TOTAL PROTEIN 5.9 G/DL (5.7-8.2)
[2022-09-16] MEDS ORDERED: MAGNESIUM OXIDE 400MG TAB (MAG-OX) PO ONE (09:00)
[2022-09-16] MEDS: OMEPRAZOLE 20MG CAP PO SCH (10:06)
[2022-09-16] MEDS: DOCUSATE SODIUM 100MG CAPSULE PO SCH (10:06)
[2022-09-16] MEDS: APIXABAN 5 MG TAB (ELIQUIS) PO SCH (10:06)
[2022-09-16] MEDS: CEPHALEXIN 500 MG CAP PO SCH (10:07)
[2022-09-16] MEDS: NYSTATIN 100,000 UNITS/GM TOPICAL PWD 15GM TOP SCH (10:08)
[2022-09-16] MEDS ORDERED: PATIROMER SORBITEX CALCIUM 8.4 GM POWDER PACKET (VELTASSA) PO ONE (12:00)
[2022-09-16] MEDS ORDERED: VELT1POW PO (12:41)
[2022-09-16] MEDS ORDERED: CEPH500C PO (12:41)
== END 2022-09-16 14:30 | disposition home or self-care (01) | DRG 383 ==
LOC: EDBD 10:39 → M ED 10:39 → M ED INP 16:19 → M MS5PR 20:15
PROVIDERS: ADMIT Internal Medicine; ATTEND Family Medicine
DX: L03.311 Cellulitis of abdominal wall (principal); N17.9 Acute kidney failure, unspecified; Q43.1 Hirschsprung's disease; E87.20 Acidosis, unspecified; I73.00 Raynaud's syndrome without gangrene; E03.9 Hypothyroidism, unspecified; G47.33 Obstructive sleep apnea (adult) (pediatric); E55.9 Vitamin D deficiency, unspecified; H21.81 Floppy iris syndrome; R11.2 Nausea with vomiting, unspecified; D64.9 Anemia, unspecified; R41.89 Other symptoms and signs involving cognitive functions and awareness; T36.8X5A Adverse effect of other systemic antibiotics, initial encounter; L30.4 Erythema intertrigo; Q90.9 Down syndrome, unspecified; Z93.3 Colostomy status; Z86.718 Personal history of other venous thrombosis and embolism; Z79.01 Long term (current) use of anticoagulants; Z79.890 Hormone replacement therapy; Z79.899 Other long term (current) drug therapy; Z88.0 Allergy status to penicillin; Z88.8 Allergy status to other drugs, medicaments and biological substances

== ENCOUNTER → 2022-09-18 | Outpatient (CLI) | payer MEDICAID ==
[~2022-09-18] MED LIST changes: +ALLE1TAB23 PO; +CEPH500C PO; +DOCU100C16 PO; +ELIQ5TAB PO; +FAMO40TA3 PO; +OMEP-173 PO; +VELT1POW PO
[2022-09-18 20:12] LABS: ALBUMIN 2.3 G/DL (3.2-5.2); CALCIUM LEVEL 7.9 MG/DL (8.5-10.1); CREATININE FOR GFR 3.18 MG/DL (0.55-1.30); GLOMERULAR FILTRATION RATE 17.1 (>58); PHOSPHORUS LEVEL 3.9 MG/DL (2.5-4.9); POTASSIUM SERUM 4.8 MMOL/L (3.5-5.1)
== END ==
LOC: M PLALAB 15:19
PROVIDERS: ATTEND Internal Medicine Hematology
DX: N17.9 Acute kidney failure, unspecified (principal)

== ENCOUNTER → 2022-09-25 | Outpatient (CLI) | payer MEDICAID ==
[2022-09-25 17:38] LABS: ALBUMIN 2.8 G/DL (3.2-5.2); CALCIUM LEVEL 8.2 MG/DL (8.5-10.1); CREATININE FOR GFR 1.96 MG/DL (0.55-1.30); GLOMERULAR FILTRATION RATE 29.9 (>58); PHOSPHORUS LEVEL 3.3 MG/DL (2.5-4.9); POTASSIUM SERUM 4.2 MMOL/L (3.5-5.1)
== END ==
LOC: M PLALAB 14:18
PROVIDERS: ATTEND Internal Medicine Hematology
DX: N17.9 Acute kidney failure, unspecified (principal)

== ENCOUNTER → 2022-11-08 | Outpatient (REF) | payer MEDICAID | LOC: M SFHCPLAZ 13:21 | PROVIDERS: ATTEND Internal Medicine Hematology | DX: Z53.9 Procedure and treatment not carried out, unspecified reason (principal) ==

== ENCOUNTER → 2022-12-04 | Outpatient (CLI) | payer MEDICAID ==
[2022-12-04 14:24] LABS: HEMATOCRIT 44.1 % (36.0-47.0); HEMOGLOBIN 13.6 g/dl (12.0-15.5); MEAN CORPUSCULAR HGB CONC 30.8 g/dl (32.0-36.5); MEAN CORPUSCULAR VOLUME 97.4 fl (80.0-96.0); PLATELET COUNT, AUTOMATED 272 10^3/uL (150-450); RED BLOOD COUNT 4.53 10^6/uL (4.00-5.40); WHITE BLOOD COUNT 5.9 10^3/uL (4.0-10.0)
[2022-12-04 14:59] LABS: HEMOGLOBIN A1c 4.9 % (4.0-6.0)
[2022-12-04 15:02] LABS: ALBUMIN 2.9 G/DL (3.2-5.2); BILIRUBIN,TOTAL 0.5 MG/DL (0.3-1.2); CALCIUM LEVEL 8.4 MG/DL (8.5-10.1); CHOLESTEROL RISK RATIO 2.69 (<5); CREATININE FOR GFR 1.19 MG/DL (0.55-1.30); GLOMERULAR FILTRATION RATE 53.2 (>58); HDL CHOLESTEROL 52.4 MG/DL (>40); NON-HDL-C 88.6 MG/DL; POTASSIUM SERUM 4.3 MMOL/L (3.5-5.1); THYROID STIMULATING HORMONE 1.157 uIU/ML (0.55-4.78); TOTAL 25(OH) VITAMIN D 38.6 NG/ML (20.0-100.0); TOTAL PROTEIN 7.6 G/DL (5.7-8.2)
== END ==
LOC: M PLALAB 10:43
PROVIDERS: ATTEND Internal Medicine Hematology
DX: E03.9 Hypothyroidism, unspecified (principal)

== ENCOUNTER → 2022-12-28 | Outpatient (CLI) | payer MEDICAID | LOC: M WHC 13:09 | PROVIDERS: ATTEND Nurse Practitioner Family | DX: R10.2 Pelvic and perineal pain (principal) ==

== ENCOUNTER → 2023-06-20 | Outpatient (CLI) | payer MEDICAID ==
[~2023-06-20] MED LIST changes: -ALLE1TAB23 PO; +FEXO-157 PO; +GASTROGRAFIN SOLUTION 30ML As Ordered ONE; +ISOVUE-370 76% 100ML VIAL As Ordered ONE
== END ==
LOC: M RAD 13:26
PROVIDERS: ATTEND Internal Medicine Hematology
DX: R10.13 Epigastric pain (principal)
CPT/HCPCS: 74160; Q9963; Q9967

== ENCOUNTER → 2023-09-27 | Outpatient (CLI) | payer MEDICAID ==
[~2023-09-27] MED LIST changes: -GASTROGRAFIN SOLUTION 30ML As Ordered ONE; -ISOVUE-370 76% 100ML VIAL As Ordered ONE
[2023-09-27 13:15] LABS: HEMATOCRIT 46.7 % (36.0-47.0); HEMOGLOBIN 13.9 g/dl (12.0-15.5); MEAN CORPUSCULAR HEMOGLOBIN 30.6 pg (27.0-33.0); MEAN CORPUSCULAR HGB CONC 29.8 g/dl (32.0-36.5); MEAN CORPUSCULAR VOLUME 102.9 fl (80.0-96.0); PLATELET COUNT, AUTOMATED 169 10^3/uL (150-450); RED BLOOD COUNT 4.54 10^6/uL (4.00-5.40); WHITE BLOOD COUNT 5.9 10^3/uL (4.0-10.0)
[2023-09-27 13:49] LABS: IRON (FE) 36 UG/DL (50-170)
[2023-09-27 13:56] LABS: ALBUMIN 2.7 G/DL (3.2-5.2); ALKALINE PHOSPHATASE 57 U/L (46-116); ALT/SGPT 14 U/L (7.0-40); AST/SGOT 36 U/L (<34); BILIRUBIN,TOTAL 0.7 MG/DL (0.3-1.2); BLOOD UREA NITROGEN 18 MG/DL (9-23); CALCIUM LEVEL 8.6 MG/DL (8.5-10.1); CARBON DIOXIDE LEVEL 22 MMOL/L (20-31); CHLORIDE LEVEL 106 MMOL/L (98-107); CHOLESTEROL LEVEL 125 MG/DL (<200); CHOLESTEROL RISK RATIO 3.08 (<5); GLOMERULAR FILTRATION RATE > 60.0 (>58); GLUCOSE, FASTING 76 MG/DL (60-100); HDL CHOLESTEROL 40.5 MG/DL (>40); LDL CHOLESTEROL 70.9 MG/DL (<100); NON-HDL-C 84.5 MG/DL; POTASSIUM SERUM 5.5 MMOL/L (3.5-5.1); SODIUM LEVEL 137 MMOL/L (136-145); TOTAL 25(OH) VITAMIN D 39.6 NG/ML (20.0-100.0); TOTAL PROTEIN 7.5 G/DL (5.7-8.2); TRIGLYCERIDES LEVEL 68 MG/DL (<150); VITAMIN B12 LEVEL 338 PG/ML (211-911)
== END ==
LOC: M LAB 11:35
PROVIDERS: ATTEND Internal Medicine Hematology
DX: Z13.1 Encounter for screening for diabetes mellitus (principal); D50.9 Iron deficiency anemia, unspecified

== ENCOUNTER → 2023-09-30 | Outpatient (REF) | payer MEDICAID ==
[2023-09-30 15:51] LABS: CREATININE, URINE 136.5 MG/DL; MAU/CREAT RATIO 7.3 MCG/MG (0.0-30.0)
[2023-09-30 15:59] LABS: HEMOGLOBIN A1c 4.9 % (4.0-6.0)
== END ==
LOC: M SFHCPLAZ 14:52
PROVIDERS: ATTEND Internal Medicine Hematology
DX: D50.9 Iron deficiency anemia, unspecified (principal); Z13.1 Encounter for screening for diabetes mellitus

== ENCOUNTER → 2023-10-03 | Outpatient (CLI) | payer MEDICAID | LOC: M PLALAB 13:27 | PROVIDERS: ATTEND Internal Medicine Hematology | DX: E87.5 Hyperkalemia (principal) ==

== ENCOUNTER → 2023-10-14 | Outpatient (CLI) | payer MEDICAID ==
[~2023-10-14] MED LIST changes: +GASTROGRAFIN SOLUTION 30ML As Ordered ONE; +ISOVUE-370 76% 100ML VIAL As Ordered ONE
== END ==
LOC: M RAD 08:26
PROVIDERS: ATTEND Internal Medicine Hematology
DX: K43.9 Ventral hernia without obstruction or gangrene (principal)
CPT/HCPCS: 74170; Q9963; Q9967

== ENCOUNTER 2023-10-16 11:00 | Outpatient (CLI) | payer MEDICAID ==
[~2023-10-16] VITALS: Ht 147.3 cm; Wt 146.6 kg
[~2023-10-16 11:00] MED LIST changes: +ALBUTEROL SULFATE 2.5MG/0.5ML INH NEB SOLN INH PRN; +EPINEPHrine INJ 1 MG/ML 1ML AMP IM PRN; -GASTROGRAFIN SOLUTION 30ML As Ordered ONE; -ISOVUE-370 76% 100ML VIAL As Ordered ONE; +diphenhydrAMINE 50MG/ML VIAL IV PRN; +methylPREDNISolone 125MG 2ML VIAL IV PRN
[2023-10-16 11:13] VITALS: BP 110/78; O2SAT 100
[2023-10-16] MEDS ORDERED: NS 1,000 ML IV SCH (11:15)
[2023-10-16] MEDS ORDERED: DEPO150I12 IM (11:48)
[2023-10-16] MEDS ORDERED: SENN-186 PO (11:58)
[2023-10-16] MEDS: FERRIC CARBOXYMALTOSE INJ 750 MG in NS 250 ML (>50kg) IV ONE (12:09)
[2023-10-16 13:50] VITALS: BP 124/78; O2SAT 98
== END 2023-10-16 14:15 | disposition home or self-care (01) ==
LOC: M INFU 11:00
PROVIDERS: ATTEND Internal Medicine Hematology
DX: D50.9 Iron deficiency anemia, unspecified (principal); Z88.1 Allergy status to other antibiotic agents; Z88.0 Allergy status to penicillin
CPT/HCPCS: 96365; 96366; J1439

== ENCOUNTER → 2024-01-24 | Outpatient (CLI) | payer OTHER, MEDICAID ==
[~2024-01-24] MED LIST changes: -ALBUTEROL SULFATE 2.5MG/0.5ML INH NEB SOLN INH PRN; +DEPO150I12 IM; -EPINEPHrine INJ 1 MG/ML 1ML AMP IM PRN; -FEXO-157 PO; +FEXO-63 PO; +SENN-186 PO; -diphenhydrAMINE 50MG/ML VIAL IV PRN; -methylPREDNISolone 125MG 2ML VIAL IV PRN
[2024-01-24 15:42] LABS: BASO # 0.1 10^3/uL (0.0-0.2); BASO % 0.7 % (0.0-1.0); EOS # 0.1 10^3/uL (0.0-0.5); EOS % 1.1 % (0.0-3.0); HEMATOCRIT 42.9 % (36.0-47.0); HEMOGLOBIN 13.7 g/dl (12.0-15.5); LYMPH # 2.6 10^3/uL (1.5-5.0); LYMPH % 36.1 % (24.0-44.0); MEAN CORPUSCULAR HEMOGLOBIN 31.6 pg (27.0-33.0); MEAN CORPUSCULAR HGB CONC 31.9 g/dl (32.0-36.5); MEAN CORPUSCULAR VOLUME 99.1 fl (80.0-96.0); MONO # 0.5 10^3/uL (0.0-0.8); MONO % 7.3 % (2.0-8.0); NEUTROPHILS # 3.9 10^3/uL (1.5-8.5); NEUTROPHILS % 54.5 % (36.0-66.0); PLATELET COUNT, AUTOMATED 250 10^3/uL (150-450); RED BLOOD COUNT 4.33 10^6/uL (4.00-5.40); WHITE BLOOD COUNT 7.1 10^3/uL (4.0-10.0)
[2024-01-24 16:18] LABS: ALBUMIN 2.7 G/DL (3.2-5.2); ALKALINE PHOSPHATASE 63 U/L (46-116); ALT/SGPT 12 U/L (7.0-40); AST/SGOT 12 U/L (<34); BILIRUBIN,TOTAL 0.7 MG/DL (0.3-1.2); BLOOD UREA NITROGEN 14 MG/DL (9-23); CARBON DIOXIDE LEVEL 22 MMOL/L (20-31); CHLORIDE LEVEL 108 MMOL/L (98-107); CREATININE FOR GFR 1.02 MG/DL (0.55-1.30); GLOMERULAR FILTRATION RATE > 60.0 (>58); GLUCOSE, FASTING 81 MG/DL (60-100); IRON (FE) 47 UG/DL (50-170); POTASSIUM SERUM 4.4 MMOL/L (3.5-5.1); SODIUM LEVEL 136 MMOL/L (136-145); TOTAL PROTEIN 7.1 G/DL (5.7-8.2)
[2024-01-24 16:19] LABS: FERRITIN 413.6 NG/ML (7.3-270.7); THYROID STIMULATING HORMONE 6.863 uIU/ML (0.55-4.78); TOTAL 25(OH) VITAMIN D 38.1 NG/ML (20.0-100.0)
[2024-01-24 16:22] LABS: VITAMIN B12 LEVEL 263 PG/ML (211-911)
[2024-01-24 17:18] LABS: HEMOGLOBIN A1c 4.9 % (4.0-6.0)
== END ==
LOC: M PLALAB 12:19
PROVIDERS: ATTEND Internal Medicine Hematology
DX: E03.9 Hypothyroidism, unspecified (principal); E66.01 Morbid (severe) obesity due to excess calories; D50.9 Iron deficiency anemia, unspecified; Z79.899 Other long term (current) drug therapy

== ENCOUNTER → 2024-02-03 | Outpatient (CLI) | payer OTHER, MEDICAID ==
[2024-02-04 16:03] LABS: ANA SCREEN, IFA NEGATIVE (NEGATIVE)
[2024-02-04 23:32] LABS: CYCLIC CITRULLINATED PEPTIDE < 16 UNITS (<20)
== END ==
LOC: M PLALAB 12:27
PROVIDERS: ATTEND Internal Medicine Hematology
DX: M06.9 Rheumatoid arthritis, unspecified (principal)

== ENCOUNTER 2024-02-13 13:00 | Outpatient (CLI) | payer OTHER, MEDICAID ==
[~2024-02-13 13:00] MED LIST changes: +ALBUTEROL SULFATE 2.5MG/0.5ML INH NEB SOLN INH PRN; +EPINEPHrine INJ 1 MG/ML 1ML AMP IM PRN; +diphenhydrAMINE 50MG/ML VIAL IV PRN; +methylPREDNISolone 125MG 2ML VIAL IV PRN
[2024-02-13 13:30] VITALS: BP 139/88; O2SAT 100
[2024-02-13] MEDS ORDERED: NS 1,000 ML IV SCH (13:30)
[2024-02-13] MEDS: IRON SUCROSE 300 MG in NS 250 ML OVER 90 MIN. IV ONE (13:40)
[2024-02-13 16:05] VITALS: BP 127/72; O2SAT 100
== END 2024-02-13 16:10 ==
LOC: M INFU 13:00
PROVIDERS: ATTEND Internal Medicine Hematology
DX: D50.9 Iron deficiency anemia, unspecified (principal); Z88.0 Allergy status to penicillin; Z88.1 Allergy status to other antibiotic agents
CPT/HCPCS: 96365; 96366; J1756

== ENCOUNTER 2024-03-03 13:30 | Outpatient (CLI) | payer OTHER, MEDICAID ==
[~2024-03-03] VITALS: Ht 141.6 cm; Wt 144.8 kg
[2024-03-03 13:30] VITALS: BP 140/88; O2SAT 97
[~2024-03-03 13:30] MED LIST changes: +IRON SUCROSE 300 MG in NS 250 ML OVER 90 MIN. IV ONE; +NS 1,000 ML IV SCH
[2024-03-03] MEDS: IRON SUCROSE 300 MG in NS 250 ML OVER 90 MIN. IV ONE (14:15)
[2024-03-03 15:55] VITALS: BP 114/66; O2SAT 96
== END 2024-03-03 15:55 ==
LOC: M INFU 13:30
PROVIDERS: ATTEND Internal Medicine Hematology
DX: D50.9 Iron deficiency anemia, unspecified (principal); Z88.1 Allergy status to other antibiotic agents
CPT/HCPCS: 96365; 96366; J1756

== ENCOUNTER → 2024-07-14 | Outpatient (CLI) | payer OTHER, MEDICAID ==
[~2024-07-14] MED LIST changes: -ALBUTEROL SULFATE 2.5MG/0.5ML INH NEB SOLN INH PRN; -EPINEPHrine INJ 1 MG/ML 1ML AMP IM PRN; -IRON SUCROSE 300 MG in NS 250 ML OVER 90 MIN. IV ONE; -NS 1,000 ML IV SCH; +NYST1POW3 TOP; -NYST1POW9 TOP; -diphenhydrAMINE 50MG/ML VIAL IV PRN; -methylPREDNISolone 125MG 2ML VIAL IV PRN
[2024-07-14 17:59] LABS: BASO # 0.1 10^3/uL (0.0-0.2); BASO % 1.4 % (0.0-1.0); EOS # 0.1 10^3/uL (0.0-0.5); EOS % 1.3 % (0.0-3.0); HEMATOCRIT 47.3 % (36.0-47.0); HEMOGLOBIN 15.2 g/dl (12.0-15.5); LYMPH # 2.2 10^3/uL (1.5-5.0); MEAN CORPUSCULAR HEMOGLOBIN 32.3 pg (27.0-33.0); MEAN CORPUSCULAR HGB CONC 32.1 g/dl (32.0-36.5); MEAN CORPUSCULAR VOLUME 100.6 fl (80.0-96.0); MONO # 0.6 10^3/uL (0.0-0.8); NEUTROPHILS # 4.1 10^3/uL (1.5-8.5); PLATELET COUNT, AUTOMATED 245 10^3/uL (150-450)
[2024-07-14 18:19] LABS: IRON (FE) 44 UG/DL (50-170); PERCENT SATURATION 18.3 % (13.2-45.0); TOTAL IRON BINDING CAPACITY 240 UG/DL (250-425)
[2024-07-14 18:20] LABS: VITAMIN B12 LEVEL 414 PG/ML (211-911)
[2024-07-14 18:35] LABS: CA19-9 TUMOR MARKER,CARBOHYDRA < 1.2 U/ML (<35.0)
== END ==
LOC: M PLALAB 16:24
PROVIDERS: ATTEND Internal Medicine Hematology
DX: D64.9 Anemia, unspecified (principal); Z80.41 Family history of malignant neoplasm of ovary

== ENCOUNTER 2024-07-28 11:46 | Outpatient (CLI) | payer OTHER, MEDICAID ==
[~2024-07-28 11:46] MED LIST changes: +ALBUTEROL SULFATE 2.5MG/0.5ML INH NEB SOLN INH PRN; +EPINEPHrine INJ 1 MG/ML 1ML AMP IM PRN; +diphenhydrAMINE 50MG/ML VIAL IV PRN; +methylPREDNISolone 125MG 2ML VIAL IV PRN
[2024-07-28] MEDS: IRON SUCROSE 200 MG IVP IV ONE (13:32)
[2024-07-28 14:00] VITALS: BP 112/74; O2SAT 100
== END 2024-07-28 14:00 ==
LOC: M INFU 11:46
PROVIDERS: ATTEND Internal Medicine Hematology
DX: D50.9 Iron deficiency anemia, unspecified (principal); Z88.1 Allergy status to other antibiotic agents
CPT/HCPCS: 96374; J1756

== ENCOUNTER 2024-08-11 13:26 | Outpatient (CLI) | payer OTHER, MEDICAID ==
[~2024-08-11] VITALS: Ht 170.2 cm; Wt 151.0 kg
[2024-08-11] MEDS: IRON SUCROSE 200 MG IVP IV ONE (13:50)
== END 2024-08-11 14:37 | disposition home or self-care (01) ==
LOC: M INFU 13:26
PROVIDERS: ATTEND Internal Medicine Hematology
DX: D50.9 Iron deficiency anemia, unspecified (principal); Z88.1 Allergy status to other antibiotic agents
CPT/HCPCS: 96374; J1756

== ENCOUNTER 2024-08-25 12:30 | Outpatient (CLI) | payer OTHER, MEDICAID ==
[~2024-08-25] VITALS: Ht 154.9 cm; Wt 151.4 kg
[2024-08-25] MEDS: IRON SUCROSE 200 MG IVP IV ONE (12:47)
[2024-08-25 13:20] VITALS: BP 137/83; O2SAT 100
== END 2024-08-25 13:22 ==
LOC: M INFU 12:30
PROVIDERS: ATTEND Internal Medicine Hematology
DX: D50.9 Iron deficiency anemia, unspecified (principal); Z88.1 Allergy status to other antibiotic agents
CPT/HCPCS: 96374; J1756

== ENCOUNTER → 2025-03-04 | Outpatient (CLI) | payer OTHER, MEDICAID ==
[~2025-03-04] MED LIST changes: -ALBUTEROL SULFATE 2.5MG/0.5ML INH NEB SOLN INH PRN; -EPINEPHrine INJ 1 MG/ML 1ML AMP IM PRN; -diphenhydrAMINE 50MG/ML VIAL IV PRN; -methylPREDNISolone 125MG 2ML VIAL IV PRN
== END ==
LOC: M RAD 07:33
PROVIDERS: ATTEND Family Medicine
DX: R10.9 Unspecified abdominal pain (principal); Z53.9 Procedure and treatment not carried out, unspecified reason

== ENCOUNTER → 2025-03-23 | Outpatient (CLI) | payer OTHER, MEDICAID ==
[~2025-03-23] MED LIST changes: +ISOVUE-370 76% 100 ML VIAL As Ordered ONE
== END ==
LOC: M RAD 13:59
PROVIDERS: ATTEND Family Medicine
DX: R10.9 Unspecified abdominal pain (principal); K44.9 Diaphragmatic hernia without obstruction or gangrene; R91.8 Other nonspecific abnormal finding of lung field; N28.1 Cyst of kidney, acquired; Z90.49 Acquired absence of other specified parts of digestive tract; K43.9 Ventral hernia without obstruction or gangrene
CPT/HCPCS: 74177; Q9967

== ENCOUNTER → 2025-06-04 | Outpatient (CLI) | payer OTHER, MEDICAID ==
[~2025-06-04] MED LIST changes: -ISOVUE-370 76% 100 ML VIAL As Ordered ONE
[2025-06-04 17:39] LABS: PLATELET COUNT, AUTOMATED 297 10^3/uL (150-450)
[2025-06-04 18:13] LABS: FREE T4 1.22 NG/DL (0.89-1.76)
[2025-06-04 18:43] LABS: ALT/SGPT 17.0 U/L (7.0-40); AST/SGOT 20.0 U/L (<34); CALCIUM LEVEL 8.2 MG/DL (8.5-10.1); CARBON DIOXIDE LEVEL 25.0 MMOL/L (20-31); CHLORIDE LEVEL 106.0 MMOL/L (98-107); CHOLESTEROL LEVEL 136.0 MG/DL (<200); CHOLESTEROL RISK RATIO 2.9 (<5); CREATININE FOR GFR 1.11 MG/DL (0.55-1.30); GLOMERULAR FILTRATION RATE 62.9 (>58); LDL CHOLESTEROL 69.2 MG/DL (<100); NON-HDL-C 89.2 MG/DL; POTASSIUM SERUM 3.9 MMOL/L (3.5-5.1); SODIUM LEVEL 140.0 MMOL/L (136-145); TRIGLYCERIDES LEVEL 100.0 MG/DL (<150)
== END ==
LOC: M PLALAB 14:55
PROVIDERS: ATTEND Family Medicine
DX: R10.9 Unspecified abdominal pain (principal); Z13.6 Encounter for screening for cardiovascular disorders; E03.9 Hypothyroidism, unspecified

== ENCOUNTER → 2025-06-04 | Outpatient (REF) | payer OTHER, MEDICAID | LOC: M SFHCPLAZ 14:40 | PROVIDERS: ATTEND Family Medicine | DX: R10.9 Unspecified abdominal pain (principal); Z13.6 Encounter for screening for cardiovascular disorders; E03.9 Hypothyroidism, unspecified; Z53.9 Procedure and treatment not carried out, unspecified reason ==